=== PATIENT | female | born 1935 | race African-American/Black ===

== ENCOUNTER 2017-12-29 08:48 | Emergency (ER) | payer OTHER ==
[2017-12-29 09:02] VITALS: BMI 35.6
--- NOTE | 2017-12-29 09:27 | PDOC ---
History of Present Illness - General Chief Complaint: Back Pain Stated Complaint: BACK PAIN Time Seen by Provider: 12/29/17 09:26 - History of Present Illness Initial Comments: 12/29/17 09:27 Ms. Anderson is an 82 yo female w/ pmh of HTN, HLD, DM, gout Asthma, Breast CA who presents for evaluation of 1 day history of right gluteal pain. She reports it started yesterday when she was getting up from watching tv. She experienced sudden pain and a "pop" and had difficulty sleeping due to pain after this. The patient denies chest pain, shortness of breath, headache and dizziness. Denies fever, chills, nausea, vomit, diarrhea and constipation. Denies dysuria, frequency, urgency and hematuria. Allergies: NKDA Past History - Past Medical History Allergies/Adverse Reactions: Allergies Allergy/AdvReac Type Severity Reaction Status Date / Time No Known Drug Allergies Allergy Verified 01/26/16 08:18 Home Medications: Ambulatory Orders Acetaminophen 325 mg PO PRN PRN 12/29/17 Albuterol 2.5/Ipratropium 0.5 [Duoneb -] 1 amp NEB DAILY PRN 12/29/17 Allopurinol [Zyloprim -] 100 mg PO DAILY 12/29/17 Amlodipine Besylate 10 mg PO DAILY 12/29/17 Anastrozole [Arimidex -] 1 mg PO DAILY 12/29/17 Atorvastatin Calcium 20 mg PO DAILY 12/29/17 Cholecalciferol (Vitamin D3) [Vitamin D3] 5,000 unit PO DAILY 12/29/17 Cyclobenzaprine HCl [Flexeril 10 mg] 10 mg PO TID PRN #21 tablet 12/29/17 Insulin Detemir [Levemir Flextouch] 15 unit SQ HS 12/29/17 Insulin Detemir [Levemir Flextouch] 40 unit SQ AM 12/29/17 Levothyroxine Sodium [Levo-T] 100 mcg PO DAILY 12/29/17 Lidocaine [Lidocaine Pain Relief] 1 each TP DAILY #7 adh..patch 12/29/17 Losartan 50Mg/Hctz 12.5MG [Hyzaar -] 1 tab PO DAILY 12/29/17 Anemia: No Asthma: No Cancer: Yes (RIGHT BREAST) Cardiac Disorders: No CVA: No COPD: Yes CHF: No Dementia: No Diabetes: Yes GI Disorders: No Disorders: No HTN: Yes Hypercholesterolemia: Yes Kidney Stones: Yes Liver Disease: No Seizures: No Thyroid Disease: Yes Other medical history: Gout, arthritis - Surgical History Abdominal Surgery: Yes (S/P ABDOMINAL PERITONITIS) Appendectomy: No Cardiac Surgery: No Cholecystectomy: Yes Lung Surgery: No Neurologic Surgery: No Orthopedic Surgery: No - Suicide/Smoking/Psychosocial Hx Smoking Status: No Smoking History: Never smoked Have you smoked in the past 12 months: No Number of Cigarettes Smoked Daily: 0 If you are a former smoker, when did you quit?: 2009 Information on smoking cessation initiated: No Hx Alcohol Use: No Drug/Substance Use Hx: No Substance Use Type: None Hx Substance Use Treatment: No Review of Systems - Review of Systems Comments:: 12/29/17 09:28 GENERAL/CONSTITUTIONAL: No fever or chills. No weakness. HEAD, EYES, EARS, NOSE AND THROAT: No change in vision. No ear pain or discharge. No sore throat. CARDIOVASCULAR: No chest pain or shortness of breath RESPIRATORY: No cough, wheezing, or hemoptysis. GASTROINTESTINAL: No nausea, vomiting, diarrhea or constipation. GENITOURINARY: No dysuria, frequency, or change in urination. MUSCULOSKELETAL: +Right leg pain as described. SKIN: No rash NEUROLOGIC: No headache, vertigo, loss of consciousness, or change in strength/ sensation. ENDOCRINE: No increased thirst. No abnormal weight change HEMATOLOGIC/LYMPHATIC: No anemia, easy bleeding, or history of blood clots. ALLERGIC/IMMUNOLOGIC: No hives or skin allergy. *Physical Exam - Vital Signs Last Vital Signs Temp Pulse Resp BP Pulse Ox 98.6 F 83 16 115/52 99 12/29/17 08:58 12/29/17 08:58 12/29/17 08:58 12/29/17 08:58 12/29/17 08:58 - Physical Exam Comments: 12/29/17 09:28 GENERAL: +Patient morbidly obese, otherwise Awake, alert, and fully oriented, in no acute distress HEAD: No signs of trauma, normocephalic, atraumatic EYES: PERRLA, EOMI, sclera anicteric, conjunctiva clear ENT: Auricles normal inspection, hearing grossly normal, nares patent, oropharynx clear without exudates. Moist mucosa NECK: Normal ROM, supple, no lymphadenopathy, JVD, or masses LUNGS: No distress, speaks full sentences, clear to auscultation bilaterally HEART: Regular rate and rhythm, normal S1 and S2, no murmurs, rubs or gallops, peripheral pulses normal and equal bilaterally. ABDOMEN: Soft, nontender, normoactive bowel sounds. No guarding, no rebound. No masses EXTREMITIES: +[place] TTP to right lateral gluteus. No change in strength or sensation. Normal inspection, Normal range of motion, no edema. No clubbing or cyanosis. NEUROLOGICAL: Cranial nerves II through XII grossly intact. Normal speech, normal gait, no focal sensorimotor deficits SKIN: Warm, Dry, normal turgor, no rashes or lesions noted. Medical Decision Making - Medical Decision Making 12/29/17 10:48 Ms. Anderson is an 82 yo female w/ pmh as described who presents for evaluation of sudden onset right leg pain last night. Patient describes pain as radiating up from right outside gluteal region. Patient not complaining of pain over any bony area and no midline TTP. No decrease in strength or sensation; suspect muscular etiology of pain. Patient given lidocaine patch, acetaminophen, and flexeril for symptomatic relief and reportedly feeling "much better" after. Patient able to ambulate at baseline in ER and wants to go home. Discharging w/ instructions to f/u w/ pcp for further relief. *DC/Admit/Observation/Transfer Diagnosis at time of Disposition: Leg pain, right - Discharge Dispostion Disposition: HOME - Referrals - Patient Instructions Printed Discharge Instructions: How to Prevent Falls Additional Instructions: Please follow-up with primary care provider for further evaluation. Return to ER if any increase in pain, fever, chills, or other concerning symptoms. - Post Discharge Activity
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
[2017-12-29] MEDS ORDERED: LIDOCAINE 5% TOPICAL PATCH TP ONE (09:45)
[2017-12-29] MEDS ORDERED: ACETAMINOPHEN 325 MG TABLET (FP) PO ONE (09:46)
[2017-12-29] MEDS ORDERED: CYCLOBENZAPRINE HCL 5 MG TABLET PO ONE (09:48)
[2017-12-29] MEDS ORDERED: CYCLOBENZAPRINE HCL 10 MG TABLET (FP) ONE (09:55)
[2017-12-29] MEDS ORDERED: ACETAMINOPHEN 325 MG TABLET (FP) ONE (09:55)
[2017-12-29] MEDS ORDERED: LIDOCAINE 5% TOPICAL PATCH ONE (09:55)
[2017-12-29 11:17] VITALS: BP 120/64; PULSE 86; TEMP 97.9
== END 2017-12-29 11:16 | disposition home or self-care (01) ==
LOC: JER 08:48
DX: M79.604 Pain in right leg (principal); I10 Essential (primary) hypertension; E78.5 Hyperlipidemia, unspecified; E11.9 Type 2 diabetes mellitus without complications; J45.909 Unspecified asthma, uncomplicated; Z85.3 Personal history of malignant neoplasm of breast
CPT/HCPCS: 82962; 99282-25

== ENCOUNTER 2017-12-29 19:13 | Observation (INO) | payer OTHER ==
--- NOTE | 2017-12-29 20:14 | PDOC ---
History of Present Illness - General History Source: Patient Exam Limitations: No Limitations - History of Present Illness Initial Comments: 12/29/17 20:29 The patient is a 82 year old female brought via EMS and presenting with her family, with a significant past medical history of HTN, HLD, DM, gout Asthma, Breast CA (no chemo), who presents to the ED complaining of back pain since yesterday. She reports that the pain ranges from mild to moderate, without radiation. She notes that certain movements exacerbates her pain. She notes that she usually ambulates normally but hasnt due to the pain. The patient was in the ED earlier today with the same complaint and was discharged after improvements of symptoms. The patient denies chest pain, shortness of breath, headache and dizziness. Denies fever, chills, nausea, vomiting, diarrhea or constipation. Denies dysuria , frequency, urgency and hematuria. Allergies: None Past surgical history: ABDOMINAL PERITONITIS, cholcystectomy Social History: No alcohol, tobacco or drug use reported <Dariel Zhao - Last Filed: 12/29/17 20:29> <Amber Kerr - Last Filed: 12/30/17 01:15> - General Chief Complaint: Back Pain Stated Complaint: PAIN Time Seen by Provider: 12/29/17 20:03 Past History <Dariel Zhao - Last Filed: 12/29/17 20:29> - Past Medical History Anemia: No Asthma: No Cancer: Yes (RIGHT BREAST) Cardiac Disorders: No CVA: No COPD: Yes CHF: No Dementia: No Diabetes: Yes GI Disorders: No Disorders: No HTN: Yes Hypercholesterolemia: Yes Kidney Stones: Yes Liver Disease: No Seizures: No Thyroid Disease: Yes - Surgical History Abdominal Surgery: Yes (S/P ABDOMINAL PERITONITIS) Appendectomy: No Cardiac Surgery: No Cholecystectomy: Yes Lung Surgery: No Neurologic Surgery: No Orthopedic Surgery: No - Suicide/Smoking/Psychosocial Hx Smoking Status: No Smoking History: Never smoked Have you smoked in the past 12 months: No Number of Cigarettes Smoked Daily: 0 If you are a former smoker, when did you quit?: 2009 Information on smoking cessation initiated: No Hx Alcohol Use: No Drug/Substance Use Hx: No Substance Use Type: None Hx Substance Use Treatment: No <Amber Kerr - Last Filed: 12/30/17 01:15> - Past Medical History Allergies/Adverse Reactions: Allergies Allergy/AdvReac Type Severity Reaction Status Date / Time No Known Drug Allergies Allergy Verified 12/29/17 19:42 Home Medications: Ambulatory Orders Albuterol 2.5/Ipratropium 0.5 [Duoneb -] 1 amp NEB DAILY PRN 12/29/17 Allopurinol [Zyloprim -] 100 mg PO DAILY 12/29/17 Amlodipine Besylate 10 mg PO DAILY 12/29/17 Anastrozole [Arimidex -] 1 mg PO DAILY 12/29/17 Atorvastatin Calcium 20 mg PO DAILY 12/29/17 B12/Levomefolate Calcium/B-6 [Foltx Tablet] 1 each PO DAILY 12/29/17 Cyclobenzaprine HCl [Flexeril 10 mg] 10 mg PO TID PRN #21 tablet 12/29/17 Levothyroxine Sodium [Levo-T] 100 mcg PO DAILY 12/29/17 Losartan 50Mg/Hctz 12.5MG [Hyzaar -] 1 tab PO DAILY 12/29/17 Review of Systems - Review of Systems Able to Perform ROS?: Yes Comments:: 12/29/17 20:29 GENERAL/CONSTITUTIONAL: No fever or chills. No weakness. HEAD, EYES, EARS, NOSE AND THROAT: No change in vision. No ear pain or discharge. No sore throat. GASTROINTESTINAL: No nausea, vomiting, diarrhea or constipation. GENITOURINARY: No dysuria, frequency, or change in urination. CARDIOVASCULAR: No chest pain or shortness of breath. RESPIRATORY: No cough, wheezing, or hemoptysis. MUSCULOSKELETAL: (+) Back pain. No joint or muscle swelling or pain. No neck pain. SKIN: No rash NEUROLOGIC: No headache, vertigo, loss of consciousness, or change in strength/ sensation. ENDOCRINE: No increased thirst. No abnormal weight change. HEMATOLOGIC/LYMPHATIC: No anemia, easy bleeding, or history of blood clots. ALLERGIC/IMMUNOLOGIC: No hives or skin allergy. <Dariel Zhao - Last Filed: 12/29/17 20:29> *Physical Exam - Vital Signs Last Vital Signs Temp Pulse Resp BP Pulse Ox 97.6 F 90 18 132/76 88 L 12/29/17 19:42 12/29/17 19:42 12/29/17 19:42 12/29/17 19:42 12/29/17 19:42 - Physical Exam Comments: 12/29/17 20:29 Constitutional: Awake, alert, oriented. No acute distress. Head: Normocephalic. Atraumatic Eyes: PERRL. EOMI. Conjunctivae are not pale. ENT: Mucous membranes are moist and intact. Posterior pharynx without exudates or erythema. Uvula midline. Neck: Supple. Full ROM. No lymphadenopathy. Cardiovascular: Regular rate. Regular rhythm. S1, S2 regular. Distal pulses are 2+ and symmetric. Pulmonary/Chest: No evidence of respiratory distress. Clear to auscultation bilaterally No wheezing, rales or rhonchi. Abdominal: Soft and non-distended. There is no tenderness. No rebound, guarding or rigidity. No organomegaly. No palpable masses. Good bowel sounds. Back: No CVA tenderness. Musculoskeletal: No edema. No cyanosis. No clubbing. Full range of motion in all extremities. Nocalf tenderness. Radial/pedal pulses are intact and 2+ bilaterally Skin: Skin is warm and dry. No petechiae. No purpura. Neurological: Alert and oriented to person, place, and time. Cranial nerves II -XII are grossly intact. Normal speech. Strength is grossly symmetric. No sensory deficits. Psychiatric: Good eye contact. Normal interaction, affect and behavior. <Dariel Zhao - Last Filed: 12/29/17 20:29> - Vital Signs Last Vital Signs Temp Pulse Resp BP Pulse Ox 97.6 F 90 18 132/76 88 L 12/29/17 19:42 12/29/17 19:42 12/29/17 19:42 12/29/17 19:42 12/29/17 19:42 <Amber Kerr - Last Filed: 12/30/17 01:15> Heart Score/ECG Review - ECG Intrepretation Comment:: 12/29/17 22:22 sinus at 96, nl axis, nl interval, no acute st/t wave findings <Amber Kerr - Last Filed: 12/30/17 01:15> ED Treatment Course - LABORATORY CBC & Chemistry Diagram: 12/29/17 21:00 12/29/17 21:00 <Amber Kerr - Last Filed: 12/30/17 01:15> Medical Decision Making - Medical Decision Making 12/29/17 20:49 a/p: 82yo female with hx of breast ca and RA with R low back and flank pain -seen in the ED ealier today and given flexeril - felt better went home -pain now radiating down R leg - no paresthesias -no signs/symptoms of caude equina -midline ttp lower thoracic and upper lumbar -no rashes -also with R cva ttp - suprapubic ttp, will send ua/ucx will medicate and reassess -labs 12/29/17 22:22 labs reviewed cxr clear pending ua and ct 12/30/17 00:05 pt still with back pain that radiates down R leg - no paresthesias pt states pain improved but pain with movement of R leg case discussed with Dr. Shannon - pt willing to stay for obs and pt eval Dr. Shannon requests call to [facility] for obs overnight, will take over in AM. states patient may need rehab 12/30/17 01:[address] Cohn - who accepts pt to service tonight <Amber Kerr - Last Filed: 12/30/17 01:15> *DC/Admit/Observation/Transfer - Attestations Scribe Attestion: 12/29/17 20:30 Documentation prepared by Dariel Zhao, acting as medical transcription supervisor for Amber Kerr DO <Dariel Zhao - Last Filed: 12/29/17 20:29> - Discharge Dispostion Decision to Admit order: Yes - Attestations Physician Attestion: 12/30/17 01:15 I, Dr. Amber Kerr, DO, attest that this document has been prepared under my direction and personally reviewed by me in its entirety. I further attest, that it accurately reflects all work, treatment, procedures and medical decision -making performed by me. <Amber Kerr - Last Filed: 12/30/17 01:15> Diagnosis at time of Disposition: Back pain, Leg pain, right - Discharge Dispostion Condition at time of disposition: Fair - Referrals Referrals: John Shannon MD [Primary Care Provider] - - Patient Instructions - Post Discharge Activity
[2017-12-29] MEDS ORDERED: ACETAMINOPHEN 1000 MG/100 ML VIAL (NON FORMULARY) IVPB ONE (20:17)
[2017-12-29] MEDS ORDERED: METHOCARBAMOL 500 MG TABLET PO ONE (20:17)
[2017-12-29] MEDS ORDERED: ACETAMINOPHEN INJECTION 100 ML IVPB ONE (20:29)
[2017-12-29] MEDS ORDERED: METHOCARBAMOL 500 MG TABLET ONE (20:29)
[2017-12-29 21:06] LABS: BASO % 0.5 % (0-2.0); EOS % 0.4 % (0-4.5); HEMATOCRIT 34.6 % (32.4-45.2); HEMOGLOBIN 11.5 GM/dL (10.7-15.3); LYMPH % 9.4 % (8-40); MCH 30.4 pg (25.7-33.7); MCHC 33.3 g/dl (32.0-36.0); MEAN CELL VOLUME 91.2 fl (80-96); MEAN PLT VOLUME 10.3 fl (7.5-11.1); MONO % 10.2 % (3.8-10.2); NEUT % 79.5 % (42.8-82.8); PLATELET COUNT 163 K/MM3 (134-434); RBC 3.79 M/mm3 (3.60-5.2); RDW 15.3 % (11.6-15.6); WHITE BLOOD COUNT 5.8 K/mm3 (4.0-10.0)
[2017-12-29 21:35] LABS: ALBUMIN 3.5 g/dl (3.4-5.0); ANION GAP 9 (8-16); BILIRUBIN,TOTAL 0.4 mg/dL (0.2-1.0); BLOOD UREA NITROGEN 22 mg/dL (7-18); CALCIUM 9.5 mg/dL (8.5-10.1); CHLORIDE 105 mmol/L (98-107); CO2 27 mmol/L (21-32); CREATININE 1.4 mg/dL (0.55-1.02); GLUCOSE,RANDOM 168 mg/dL (74-106); POTASSIUM 3.7 mmol/L (3.5-5.1); SGOT/AST 20 U/L (15-37); SGPT/ALT 15 U/L (12-78); SODIUM 141 mmol/L (136-145)
[2017-12-29 21:36] LABS: ALK PHOS 145 U/L (45-117)
[2017-12-29 22:27] LABS: URINE APPEARANCE CLOUDY; URINE BILIRUBIN NEGATIVE (<2.0 mg/dL); URINE COLOR YELLOW; URINE GLUCOSE (UA) 3+ (NEGATIVE); URINE KETONE NEGATIVE (NEGATIVE); URINE LEUK ESTERASE NEGATIVE (NEGATIVE); URINE NITRITE NEGATIVE (NEGATIVE); URINE UROBILINOGEN NEGATIVE mg/dL (0.2-1.0)
[2017-12-29 22:31] LABS: URINE PROTEIN 2+ (NEGATIVE)
[2017-12-29 22:32] LABS: EPI CELLS RARE /HPF (FEW); URINE BACTERIA FEW /hpf (NONE SEEN)
[2017-12-30] MEDS ORDERED: SODIUM CHLORIDE 0.9% 1000 ML INFUS.BAG IV ONE (00:06)
[2017-12-30] MEDS ORDERED: LIDOCAINE 5% TOPICAL PATCH TP ONE (00:07)
[2017-12-30] MEDS ORDERED: LIDOCAINE 5% TOPICAL PATCH ONE (01:45)
[2017-12-30 04:25] VITALS: BMI 28.4
--- NOTE | 2017-12-30 05:02 | PN ---
Teaching Attending Note Name of Resident: John Cohn ATTENDING PHYSICIAN STATEMENT I saw and evaluated the patient. I reviewed the resident's note and discussed the case with the resident. I agree with the resident's findings and plan as documented. SUBJECTIVE: Patient is a 82 year old female brought via EMS and presenting with her family, with a significant past medical history of HTN, HLD, DM, gout Asthma, Breast CA (no chemo), who presents to the ED complaining of back pain since yesterday. She reports that the pain ranges from mild to moderate, without radiation. She notes that certain movements exacerbates her pain. She thinks she moved the wrong way and something "popped". The patient was in the ED earlier today and ambulated before discharge but upon getting home by EMS, she could not walk. OBJECTIVE: Alert and in pain. Vital Signs Period Temp Pulse Resp BP Sys/[place] Pulse Ox Last 24 Hr 97.6 F-99.6 F 89-90 18-20 126-134/76-88 88-95 HEENT: No Jaundice, eye redness or discharge, PERRLA, EOMI. Normocephalic, atraumatic. External ears are normal and hearing is grossly intact. No nasal discharge. Neck: Supple, nontender. No palpable adenopathy or thyromegaly. No JVD Chest: Good effort. Clear to auscultation and percussion. Heart: Regular. No S3, rub or murmur Abdomen: Not distended, soft, nontender and no HSM. No rebound or guarding. Normoactive bowel sounds. Ext: Peripheral pulses intact. No leg edema. Mild lumbar spine tenderness. Skin: Warm and dry. No petechiae, rash or ecchymosis. Neuro: Alert. Oriented x3. CN 2-12 grossly intact. Sensation grossly intact in all four extremities; painful straight leg raising; DTR are symmetric. Current Medications Generic Name Dose Route Start Last Admin Trade Name Freq PRN Reason Stop Dose Admin Miscellaneous 1 each 12/30/17 22:00 Lidoderm Patch Removal MC [id number] [facility] Home Medications Medication Instructions Recorded Albuterol 2.5/Ipratropium 0.5 1 amp NEB DAILY PRN 12/29/17 [Duoneb -] Allopurinol [Zyloprim -] 100 mg PO DAILY 12/29/17 Amlodipine Besylate 10 mg PO DAILY 12/29/17 Anastrozole [Arimidex -] 1 mg PO DAILY 12/29/17 Atorvastatin Calcium 20 mg PO DAILY 12/29/17 B12/Levomefolate Calcium/B-6 1 each PO DAILY 12/29/17 [Foltx Tablet] Cyclobenzaprine HCl [Flexeril 10 10 mg PO TID PRN #21 tablet 12/29/17 mg] Levothyroxine Sodium [Levo-T] 100 mcg PO DAILY 12/29/17 Losartan 50Mg/Hctz 12.5MG [Hyzaar 1 tab PO DAILY 12/29/17 -] Abnormal Lab Results 12/29/17 12/29/17 21:00 22:00 BUN 22 H Creatinine 1.4 H Random Glucose 168 H Alkaline Phosphatase 145 H Urine Protein 2+ H Urine Glucose (UA) 3+ H Urine Blood 1+ H ASSESSMENT AND PLAN: 1. Back pain - Etiology unclear. Had a CT scan of "Abdomen and Pelvis" which did not show any gross abnormality. Will continue lidoderm patch, warm compress , get PT consult and lumbosacral MRI. Of concern, is her history of breast cancer with elevated Alkaline phosphatase. 2. Pyuria - Asymptomatic and also has proteinuria and hematuria. Repeat clean catch urinalysis. No need for antibiotics at this time 3. CHRIS - May signal dehydration from osmotic diuresis. Rehydrate orally, strive for euglycemia and avoid nephrotoxic agents such as NSAIDS, aminoglycosides, contrast dyes and certain Alternative medicine products. Check uric acid level and HbA1c 4. DVT prophylaxis - Heparin 5000u sq tid. 5. Advance directives - Full code
--- NOTE | 2017-12-30 06:29 | HP ---
CHIEF COMPLAINT: leg pain PCP: Mirtha HISTORY OF PRESENT ILLNESS: Pt is an 82 y/o F with PMH HTN, HLD, DM, gout, asthma, breast CA (no chemo) who presented to ED with leg pain after back pain. Pain did not shoot down the leg. Pt was evaluated in ED and was able to walk. She was discharged home, but on arriving in the ambulance, pt was unable to ambulate due to pain and so she was brought back to ED. On my interview, pt does still have leg pain. No other complaints. 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 (2)UA with 3+ glc, 21 WBC, CXR neg, CTAP pos with chronic findings (3) Recent Travel: PAST MEDICAL HISTORY: as above PAST SURGICAL HISTORY: Social History: Smoking : denies Alcohol: denies Drugs: denies Family History: Allergies No Known Drug Allergies Allergy (Verified 12/29/17 19:42) HOME MEDICATIONS: Home Medications Medication Instructions Recorded Albuterol 2.5/Ipratropium 0.5 1 amp NEB DAILY PRN 12/29/17 [Duoneb -] Allopurinol [Zyloprim -] 100 mg PO DAILY 12/29/17 Amlodipine Besylate 10 mg PO DAILY 12/29/17 Anastrozole [Arimidex -] 1 mg PO DAILY 12/29/17 Atorvastatin Calcium 20 mg PO DAILY 12/29/17 B12/Levomefolate Calcium/B-6 1 each PO DAILY 12/29/17 [Foltx Tablet] Cyclobenzaprine HCl [Flexeril 10 10 mg PO TID PRN #21 tablet 12/29/17 mg] Levothyroxine Sodium [Levo-T] 100 mcg PO DAILY 12/29/17 Losartan 50Mg/Hctz 12.5MG [Hyzaar 1 tab PO DAILY 12/29/17 -] REVIEW OF SYSTEMS CONSTITUTIONAL: Absent: fever, chills, diaphoresis, generalized weakness, malaise, loss of appetite, weight change HEENT: Absent: rhinorrhea, nasal congestion, throat pain, throat swelling, difficulty swallowing, mouth swelling, ear pain, eye pain, visual changes CARDIOVASCULAR: Absent: chest pain, syncope, palpitations, irregular heart rate, lightheadedness , peripheral edema RESPIRATORY: Absent: cough, shortness of breath, dyspnea with exertion, orthopnea, wheezing, stridor, hemoptysis GASTROINTESTINAL: Absent: abdominal pain, abdominal distension, nausea, vomiting, diarrhea, constipation, melena, hematochezia GENITOURINARY: Absent: dysuria, frequency, urgency, hesitancy, hematuria, flank pain, genital pain MUSCULOSKELETAL: Absent: myalgia, arthralgia, joint swelling, back pain, neck pain SKIN: Absent: rash, itching, pallor HEMATOLOGIC/IMMUNOLOGIC: Absent: easy bleeding, easy bruising, lymphadenopathy, frequent infections ENDOCRINE: Absent: unexplained weight gain, unexplained weight loss, heat intolerance, cold intolerance NEUROLOGIC: Absent: headache, focal weakness or paresthesias, dizziness, unsteady gait, seizure, mental status changes, bladder or bowel incontinence PSYCHIATRIC: Absent: anxiety, depression, suicidal or homicidal ideation, hallucinations. PHYSICAL EXAMINATION Vital Signs - 24 hr 12/29/17 12/30/17 12/30/17 19:42 00:53 04:01 Temperature 97.6 F 98.2 F 99.6 F Pulse Rate 90 90 Pulse Rate [ 89 Left Radial] Respiratory 18 18 20 Rate Blood Pressure 132/76 134/88 Blood Pressure 126/78 [Left Arm] O2 Sat by Pulse 88 L 95 Oximetry (%) Gen: sleeping, nad HEENT: NCAT neck: supple, no thyromegally, no jvd Cardio: rrr, normal s1s2, no mrg Pulm: expiratory wheezing abd: soft nontender ext: neg straight leg raise. no radiculopathy. Laboratory Results - last 24 hr 12/29/17 12/29/17 12/29/17 21:00 21:00 21:00 WBC 5.8 RBC 3.79 Hgb 11.5 Hct 34.6 MCV 91.2 MCH 30.4 MCHC 33.3 RDW 15.3 Plt Count 163 D MPV 10.3 Absolute Neuts (auto) 4.6 Neutrophils % 79.5 D Lymphocytes % 9.4 D Monocytes % 10.2 Eosinophils % 0.4 D Basophils % 0.5 Nucleated RBC % 0 Sodium 141 Potassium 3.7 Chloride 105 Carbon Dioxide 27 Anion Gap 9 BUN 22 H Creatinine 1.4 H Creat Clearance w eGFR 36.00 Random Glucose 168 H Calcium 9.5 Total Bilirubin 0.4 AST 20 ALT 15 Alkaline Phosphatase 145 H Creatine Kinase 131 Troponin I < 0.02 Total Protein 8.0 Albumin 3.5 Urine Color Urine Appearance Urine pH Ur Specific [place] Urine Protein Urine Glucose (UA) Urine Ketones Urine Blood Urine Nitrite Urine Bilirubin Urine Urobilinogen Ur Leukocyte Esterase Urine WBC (Auto) Urine RBC (Auto) Ur Epithelial Cells Urine Bacteria 12/29/17 22:00 WBC RBC Hgb Hct MCV MCH MCHC RDW Plt Count MPV Absolute Neuts (auto) Neutrophils % Lymphocytes % Monocytes % Eosinophils % Basophils % Nucleated RBC % Sodium Potassium Chloride Carbon Dioxide Anion Gap BUN Creatinine Creat Clearance w eGFR Random Glucose Calcium Total Bilirubin AST ALT Alkaline Phosphatase Creatine Kinase Troponin I Total Protein Albumin Urine Color Yellow Urine Appearance Cloudy Urine pH 5.0 Ur Specific [place] 1.017 Urine Protein 2+ H Urine Glucose (UA) 3+ H Urine Ketones Negative Urine Blood 1+ H Urine Nitrite Negative Urine Bilirubin Negative Urine Urobilinogen Negative Ur Leukocyte Esterase Negative Urine WBC (Auto) 21 Urine RBC (Auto) 1 Ur Epithelial Cells Rare Urine Bacteria Few ASSESSMENT/PLAN: Pt is an 82 y/o F with PMH HTN, HLD, DM, gout, asthma, breast CA (no chemo) who presented to ED with leg pain after back pain. Pt on medsurg with inability to ambulate. #Leg pain -unable to ambulate -pain control -PT -fall precautions #DM -BGM -ISS #Asthma -ventolin PRN #HTN -controlled #HLD -stable John Cohn MD PGY-2 IM Visit type - Emergency Visit Emergency Visit: Yes ED Registration Date: 12/30/17 Care time: The patient presented to the Emergency Department on the above date and was hospitalized for further evaluation of their emergent condition. - New Patient This patient is new to me today: Yes Date on this admission: 12/30/17 - Critical Care Critical Care patient: No Hospitalist Screening - Colonoscopy Questionnaire Colonoscopy Questionnaire: Colonoscopy Questionnaire - Patient: 50 - 75 years old and never had a screening colonoscopy: Unknown History of colon or rectal polyps, or CA: Unknown History of IBD, Crohn's disease or UC: Unknown History of abdominal radiation therapy as a child: Unknown - Relative: 1 with colon or rectal CA, or polyps at age 60 or younger: Unknown Colon or rectal CA diagnosed at age 45 or younger: Unknown Multiple relatives with colon or rectal CA: Unknown - Outcome: Screening Result: Negative Screen
[2017-12-30] MEDS: HEPARIN NA (PORCINE) 5,000 UNITS/ML 1ML VIAL SQ SCH ×3 (08:49→21:23)
--- NOTE | 2017-12-30 09:24 | EKG ---
Test Reason : Blood Pressure : / mmHG Vent. Rate : 096 BPM Atrial Rate : 096 BPM P-R Int : 152 ms QRS Dur : 088 ms QT Int : 364 ms P-R-T Axes : 055 025 040 degrees QTc Int : 459 ms NORMAL SINUS RHYTHM NORMAL ECG WHEN COMPARED WITH ECG OF 26-JAN-2016 08:19, VENT. RATE HAS INCREASED BY 41 BPM Confirmed by FADY FREED MD ([id number]) on 12/30/2017 9:24:03 AM Referred By: Confirmed By:FADY FREED MD
[2017-12-30] MEDS ORDERED: INSULIN (NOVOLOG) ASPART 100 UNITS/ML 10ML VIAL ONE (11:34)
[2017-12-30] MEDS: INSULIN SLIDING SCALE (NOVOLOG) 1 VIAL SQ SCH ×3 (11:37→21:26)
[2017-12-30 12:36] LABS: URINE APPEARANCE SLCLOUDY; URINE BILIRUBIN NEGATIVE (<2.0 mg/dL); URINE COLOR YELLOW; URINE GLUCOSE (UA) 3+ (NEGATIVE); URINE KETONE NEGATIVE (NEGATIVE); URINE LEUK ESTERASE TRACE (NEGATIVE); URINE NITRITE NEGATIVE (NEGATIVE); URINE UROBILINOGEN NEGATIVE mg/dL (0.2-1.0)
[2017-12-30 12:38] LABS: URINE PROTEIN 2+ (NEGATIVE)
[2017-12-30 13:17] LABS: URINE BACTERIA MANY /hpf (NONE SEEN); URINE MUCUS RARE; YEAST MANY
[2017-12-30] MEDS: IBUPROFEN 400 MG TABLET (FP) PO PRN ×2 (14:50→21:25)
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
[2017-12-30] MEDS ORDERED: cefTRIAXone SODIUM 1 GM VIAL ONE (17:59)
[2017-12-30] MEDS ORDERED: DEXTROSE 5%-WATER - 50 ML IVPB ONE (18:00)
[2017-12-30] MEDS: CEFTRIAXONE 1 GM in DEXTROSE 5%-WATER - 50 ML IVPB SCH (18:02)
[2017-12-30] MEDS ORDERED: LIDOCAINE PATCH REMOVAL MC SCH (22:00)
[2017-12-31] MEDS: IBUPROFEN 400 MG TABLET (FP) PO PRN ×2 (03:57→14:47)
[2017-12-31] MEDS: HEPARIN NA (PORCINE) 5,000 UNITS/ML 1ML VIAL SQ SCH ×2 (05:47→14:36)
[2017-12-31] MEDS: INSULIN SLIDING SCALE (NOVOLOG) 1 VIAL SQ SCH ×3 (06:15→17:10)
[2017-12-31 07:50] LABS: BASO % 0.5 % (0-2.0); EOS % 2.9 % (0-4.5); HEMATOCRIT 29.9 % (32.4-45.2); HEMOGLOBIN 9.9 GM/dL (10.7-15.3); LYMPH % 19.4 % (8-40); MCH 30.8 pg (25.7-33.7); MCHC 33.3 g/dl (32.0-36.0); MEAN CELL VOLUME 92.4 fl (80-96); MEAN PLT VOLUME 10.1 fl (7.5-11.1); MONO % 12.9 % (3.8-10.2); NEUT % 64.3 % (42.8-82.8); PLATELET COUNT 126 K/MM3 (134-434); RBC 3.23 M/mm3 (3.60-5.2); RDW 14.9 % (11.6-15.6); WHITE BLOOD COUNT 4.3 K/mm3 (4.0-10.0)
[2017-12-31 08:39] LABS: ALBUMIN 2.7 g/dl (3.4-5.0); ANION GAP 10 (8-16); BLOOD UREA NITROGEN 22 mg/dL (7-18); CALCIUM 8.8 mg/dL (8.5-10.1); CHLORIDE 104 mmol/L (98-107); CO2 27 mmol/L (21-32); GLUCOSE,RANDOM 167 mg/dL (74-106); MAGNESIUM 2.1 mg/dL (1.8-2.4); POTASSIUM 3.6 mmol/L (3.5-5.1); SGOT/AST 16 U/L (15-37); SGPT/ALT 13 U/L (12-78); SODIUM 141 mmol/L (136-145)
[2017-12-31 08:42] LABS: ALK PHOS 87 U/L (45-117); BILIRUBIN,TOTAL 0.4 mg/dL (0.2-1.0); CREATININE 1.2 mg/dL (0.55-1.02); TOT PROT 6.7 g/dl (6.4-8.2)
[2017-12-31] MEDS ORDERED: DEXTROSE 5%-WATER - 50 ML IVPB ONE (10:23)
[2017-12-31] MEDS ORDERED: cefTRIAXone SODIUM 1 GM VIAL ONE (10:23)
[2017-12-31] MEDS: CEFTRIAXONE 1 GM in DEXTROSE 5%-WATER - 50 ML IVPB SCH (10:30)
[2017-12-31] MEDS ORDERED: LIDOCAINE 5% TOPICAL PATCH TP SCH (11:15)
[2017-12-31] MEDS ORDERED: INSULIN (NOVOLOG) ASPART 100 UNITS/ML 10ML VIAL ONE ×2 (11:52→17:07)
--- NOTE | 2017-12-31 12:21 | PN ---
Physical Exam: SUBJECTIVE: Patient seen and examined OBJECTIVE: Vital Signs Period Temp Pulse Resp BP Sys/Rivera Pulse Ox Last 24 Hr 98.1 F-99.8 F 77-91 18-20 112-120/56-71 100 GENERAL: The patient is awake, alert, and fully oriented, in no acute distress. HEAD: Normal with no signs of trauma. EYES: PERRL, extraocular movements intact, sclera anicteric, conjunctiva clear. No ptosis. ENT: Ears normal, nares patent, oropharynx clear without exudates, moist mucous membranes. NECK: Trachea midline, full range of motion, supple. LUNGS: Breath sounds equal, clear to auscultation bilaterally, no wheezes, no crackles, no accessory muscle use. HEART: Regular rate and rhythm, S1, S2 without murmur, rub or gallop. ABDOMEN: Soft, nontender, nondistended, normoactive bowel sounds, no guarding, no rebound, no hepatosplenomegaly, no masses. EXTREMITIES: 2+ pulses, warm, well-perfused, no edema. NEUROLOGICAL: Cranial nerves II through XII grossly intact. Normal speech, gait not observed. PSYCH: Normal mood, normal affect. SKIN: Warm, dry, normal turgor, no rashes or lesions noted Laboratory Results - last 24 hr 12/30/17 12/30/17 12/31/17 10:45 16:48 05:43 WBC RBC Hgb Hct MCV MCH MCHC RDW Plt Count MPV Absolute Neuts (auto) Neutrophils % Lymphocytes % Monocytes % Eosinophils % Basophils % Nucleated RBC % Sodium Potassium Chloride Carbon Dioxide Anion Gap BUN Creatinine Creat Clearance w eGFR POC Glucometer 141 169 Random Glucose Calcium Magnesium Total Bilirubin AST ALT Alkaline Phosphatase Total Protein Albumin Urine Color Yellow Urine Appearance Slcloudy Urine pH 5.0 Ur Specific [place] 1.018 Urine Protein 2+ H Urine Glucose (UA) 3+ H Urine Ketones Negative Urine Blood 1+ H Urine Nitrite Negative Urine Bilirubin Negative Urine Urobilinogen Negative Ur Leukocyte Esterase Trace Urine WBC (Auto) 20 Urine RBC (Auto) <1 Urine Bacteria Many Urine Mucus Rare Urine Yeast Many 12/31/17 12/31/17 06:40 06:40 WBC 4.3 RBC 3.23 L Hgb 9.9 L Hct 29.9 L MCV 92.4 MCH 30.8 MCHC 33.3 RDW 14.9 Plt Count 126 L D MPV 10.1 Absolute Neuts (auto) 2.8 Neutrophils % 64.3 Lymphocytes % 19.4 D Monocytes % 12.9 H Eosinophils % 2.9 D Basophils % 0.5 Nucleated RBC % 0 Sodium 141 Potassium 3.6 Chloride 104 Carbon Dioxide 27 Anion Gap 10 BUN 22 H Creatinine 1.2 H Creat Clearance w eGFR 43.01 POC Glucometer Random Glucose 167 H Calcium 8.8 Magnesium 2.1 Total Bilirubin 0.4 AST 16 ALT 13 Alkaline Phosphatase 87 D Total Protein 6.7 Albumin 2.7 L Urine Color Urine Appearance Urine pH Ur Specific [place] Urine Protein Urine Glucose (UA) Urine Ketones Urine Blood Urine Nitrite Urine Bilirubin Urine Urobilinogen Ur Leukocyte Esterase Urine WBC (Auto) Urine RBC (Auto) Urine Bacteria Urine Mucus Urine Yeast Active Medications Generic Name Dose Route Start Last Admin Trade Name Freq PRN Reason Stop Dose Admin Heparin Sodium (Porcine) 5,000 unit 12/30/17 08:00 12/31/17 05:47 Heparin - SQ 5,000 unit TID KAREN Administration Ceftriaxone Sodium 1 gm/ 50 mls @ 200 mls/hr 12/30/17 17:45 12/31/17 10:30 Dextrose IVPB 200 mls/hr DAILY KAREN Administration Protocol Ibuprofen 400 mg 12/30/17 07:54 12/31/17 03:57 Motrin - PO 400 mg Q6H PRN Administration PAIN LEVEL 1-5 Insulin Aspart 1 vial 12/30/17 11:00 12/31/17 11:53 Novolog Vial Sliding Scale - SQ 4 units ACHS [facility] Administration Protocol Lidocaine 1 patch 12/31/17 11:15 12/31/17 11:42 Lidoderm Patch - TP 1 patch DAILY KAREN Administration Miscellaneous 1 each 12/30/17 22:00 12/30/17 21:24 Lidoderm Patch Removal MC Not Given DAILY@2200 [facility] Miscellaneous 1 each 12/31/17 22:00 Lidoderm Patch Removal MC DAILY@2200 [facility] ASSESSMENT/PLAN:
--- NOTE | 2017-12-31 16:29 | DS ---
Physical Exam: SUBJECTIVE: Patient seen and examined OBJECTIVE: Vital Signs Period Temp Pulse Resp BP Sys/Rivera Pulse Ox Last 24 Hr 98.1 F-99.8 F 77-91 18-20 115-128/56-72 100 PHYSICAL EXAM GENERAL: The patient is awake, alert, and fully oriented, in no acute distress. HEAD: Normal with no signs of trauma. EYES: PERRL, extraocular movements intact, sclera anicteric, conjunctiva clear. ENT: Ears normal, nares patent, oropharynx clear without exudates, moist mucous membranes. NECK: Trachea midline, full range of motion, supple. LUNGS: Breath sounds equal, clear to auscultation bilaterally, no wheezes, no crackles, no accessory muscle use. HEART: Regular rate and rhythm, S1, S2 without murmur, rub or gallop. ABDOMEN: Soft, nontender, nondistended, normoactive bowel sounds, no guarding, no rebound, no hepatosplenomegaly, no masses. EXTREMITIES: 2+ pulses, warm, well-perfused, no edema. NEUROLOGICAL: Cranial nerves II through XII grossly intact. Normal speech, gait not observed. PSYCH: Normal mood, normal affect. SKIN: Warm, dry, normal turgor, no rashes or lesions noted. LABS Laboratory Results - last 24 hr 12/30/17 12/31/17 12/31/17 16:48 05:43 06:40 WBC 4.3 RBC 3.23 L Hgb 9.9 L Hct 29.9 L MCV 92.4 MCH 30.8 MCHC 33.3 RDW 14.9 Plt Count 126 L D MPV 10.1 Absolute Neuts (auto) 2.8 Neutrophils % 64.3 Lymphocytes % 19.4 D Monocytes % 12.9 H Eosinophils % 2.9 D Basophils % 0.5 Nucleated RBC % 0 Sodium Potassium Chloride Carbon Dioxide Anion Gap BUN Creatinine Creat Clearance w eGFR POC Glucometer 141 169 Random Glucose Calcium Magnesium Total Bilirubin AST ALT Alkaline Phosphatase Total Protein Albumin 12/31/17 12/31/17 06:40 11:50 WBC RBC Hgb Hct MCV MCH MCHC RDW Plt Count MPV Absolute Neuts (auto) Neutrophils % Lymphocytes % Monocytes % Eosinophils % Basophils % Nucleated RBC % Sodium 141 Potassium 3.6 Chloride 104 Carbon Dioxide 27 Anion Gap 10 BUN 22 H Creatinine 1.2 H Creat Clearance w eGFR 43.01 POC Glucometer 209 Random Glucose 167 H Calcium 8.8 Magnesium 2.1 Total Bilirubin 0.4 AST 16 ALT 13 Alkaline Phosphatase 87 D Total Protein 6.7 Albumin 2.7 L HOSPITAL COURSE: Date of Admission:12/30/17 Date of Discharge: 12/31/17 MRI reassuring, no evidence of bony disease; no fractures cefuroxime for UTI lidoderm patch for topical analgesia f/u Dr. Dejesus Minutes to complete discharge: 35 Discharge Summary Reason For Visit: LOW BACK PAIN Current Active Problems Back pain (Acute) Leg pain, right (Acute) Condition: Improved - Instructions Diet, Activity, Other Instructions: Two prescriptions have been sent to your pharmacy. One is for cefuroxime which is an antibiotic for your urinary tract infection. The second is for lidoderm patches which you can put on your back for pain. Take these medications as directed. You should follow up with Dr. Shannon within one week of your discharge. Return to the emergency department for any new or worsening symptoms. Referrals: John Shannon MD [Primary Care Provider] - 1 Week Disposition: HOME - Home Medications Comprehensive Discharge Medication List: Ambulatory Orders Albuterol 2.5/Ipratropium 0.5 [Duoneb -] 1 amp NEB DAILY PRN 12/29/17 Allopurinol [Zyloprim -] 100 mg PO DAILY 12/29/17 Amlodipine Besylate 10 mg PO DAILY 12/29/17 Anastrozole [Arimidex -] 1 mg PO DAILY 12/29/17 Atorvastatin Calcium 20 mg PO DAILY 12/29/17 B12/Levomefolate Calcium/B-6 [Foltx Tablet] 1 each PO DAILY 12/29/17 Cyclobenzaprine HCl [Flexeril 10 mg] 10 mg PO TID PRN #21 tablet 12/29/17 Levothyroxine Sodium [Levo-T] 100 mcg PO DAILY 12/29/17 Losartan 50Mg/Hctz 12.5MG [Hyzaar -] 1 tab PO DAILY 12/29/17 Cefuroxime Axetil [Cefuroxime] 500 mg PO BID #10 tablet 12/31/17 Lidocaine 5% Patch [Lidoderm -] 1 patch TP DAILY #1 box 12/31/17
[2017-12-31 17:07] VITALS: BP 123/74; PULSE 83; TEMP 99.2
[2017-12-31] MEDS ORDERED: LIDOCAINE PATCH REMOVAL MC SCH (22:00)
== END 2017-12-31 17:50 | disposition home or self-care (01) ==
LOC: JER 19:13 → JERBED 12-30 00:20 → UNDOADMOB 12-30 01:33 → JERBED 12-30 01:33 → J8W 12-30 02:49
PROVIDERS: ADMIT Internal Medicine; ATTEND Nurse Practitioner Acute Care
PROC: 3E03329 Introduction of Other Anti-infective into Peripheral Vein, Percutaneous Approach (ICD-10-PCS; principal; 2017-12-30)
PROC: 3E033GC Introduction of Other Therapeutic Substance into Peripheral Vein, Percutaneous Approach (ICD-10-PCS; 2017-12-30)
PROC: 3E0337Z Introduction of Electrolytic and Water Balance Substance into Peripheral Vein, Percutaneous Approach (ICD-10-PCS; 2017-12-30)
PROC: 3E013VG Introduction of Insulin into Subcutaneous Tissue, Percutaneous Approach (ICD-10-PCS; 2017-12-30)
DX: M54.5 Low back pain (principal); M79.604 Pain in right leg; N39.0 Urinary tract infection, site not specified; R80.9 Proteinuria, unspecified; R31.9 Hematuria, unspecified; N17.9 Acute kidney failure, unspecified; I10 Essential (primary) hypertension; E78.5 Hyperlipidemia, unspecified; E11.9 Type 2 diabetes mellitus without complications; M10.9 Gout, unspecified; J45.909 Unspecified asthma, uncomplicated; Z85.3 Personal history of malignant neoplasm of breast
CPT/HCPCS: 36415; 71045-TC-FY; 72148-TC; 74176-TC; 80053; 81003; 81015; 82550; 82962; 83735; 84484; 85025; 87086; 93005; 93010; 96372; 96374; 96375; 97116-GP; 97162-GP; 99282-25; G0378; J0131; J1644; J7030

== ENCOUNTER 2020-01-20 19:45 | Inpatient (IN) | payer OTHER ==
[2020-01-20] MEDS ORDERED: ACETAMINOPHEN 325 MG TABLET (FP) PO ONE (20:34)
[2020-01-20] MEDS ORDERED: LIDOCAINE 5% TOPICAL PATCH TP ONE (20:34)
--- NOTE | 2020-01-20 20:50 | PDOC ---
History of Present Illness - General Chief Complaint: Injury Stated Complaint: FALL Time Seen by Provider: 01/20/20 19:57 - History of Present Illness Initial Comments: Pt is 84yo F with PMH IDDM, HTN, gout, who presents s/p fall. Pt states that she slipped on juice and fell at 7am today, and was laying on the floor until the am bulance arrived at 7pm, since she felt too weak to stand up. States the she has had L hip, knee and ankle pain x2 weeks, saw her PCP on Tuesday for this pain and was prescribed a higher dose of her gout medication, which she has not started taking yet. States that since the fall, her L hip and knee pain have been worse. Denies headache, loss of consciousness, chest pain, syncope, SOB, n/v, blurry v ision. PCP: Mirtha PMH: IDDM, HTN, gout, asthma All: NKDA Past History - Medical History Allergies/Adverse Reactions: Allergies Allergy/AdvReac Type Severity Reaction Status Date / Time egg Allergy Verified 01/20/20 20:13 No Known Drug Allergies Allergy Verified 01/20/20 20:13 Home Medications: Ambulatory Orders Albuterol 2.5/Ipratropium 0.5 [Duoneb -] 1 amp NEB DAILY PRN 12/29/17 Allopurinol [Zyloprim -] 100 mg PO DAILY 12/29/17 Amlodipine Besylate 10 mg PO DAILY 12/29/17 Levothyroxine Sodium [Levo-T] 100 mcg PO DAILY 12/29/17 Colchicine [Colcrys] 0 mg PO ASDIR 01/21/20 Telmisartan/Hydrochlorothiazid [Telmisartan-Hctz 40-12.5 mg Tb] 1 each PO ASDIR 01/21/20 Anemia: No Asthma: No Cancer: Yes (RIGHT BREAST) Cardiac Disorders: No CVA: No COPD: Yes CHF: No Dementia: No Diabetes: Yes GI Disorders: No Disorders: No HTN: Yes Hypercholesterolemia: Yes Kidney Stones: Yes Liver Disease: No Seizures: No Thyroid Disease: Yes - Surgical History Abdominal Surgery: Yes (S/P ABDOMINAL PERITONITIS) Appendectomy: No Cardiac Surgery: No Cholecystectomy: Yes Lung Surgery: No Neurologic Surgery: No Orthopedic Surgery: Yes - Psycho-Social/Smoking History Smoking Status: No Smoking History: Never smoked Have you smoked in the past 12 months: No Number of Cigarettes Smoked Daily: 0 If you are a former smoker, when did you quit?: 2009 Information on smoking cessation initiated: No - Substance Abuse Hx (Audit-C & DAST Scrn) How often the patient has a drink containing alcohol: Never Score: In Men: 4 or > Positive; In Women: 3 or > Positive: 0 Screen Result (Pos requires Nsg. Audit-10AR): Negative In the last yr the pt used illegal drug/Rx for NonMed reason: No Score: Yes response is considered Positive: 0 Screen Result (Positive result requires Nsg. DAST-10): Negative Review of Systems - Review of Systems Comments:: CONSTITUTIONAL:reports fatigue, denies fever, chills, diaphoresis, generalized weakness, loss of appetite HEENT:reports chronic nasal congestion; denies rhinorrhea, sore throat, ear pain, eye pain, visual Changes CARDIOVASCULAR:denies chest pain, syncope, palpitations, lightheadedness RESPIRATORY:denies cough, shortness of breath, wheezing, hemoptysis GASTROINTESTINAL: denies abdominal pain, nausea, vomiting, diarrhea, constipat ion, melena, hematochezia GENITOURINARY:denies dysuria, frequency, urgency, hematuria, flank pain, MUSCULOSKELETAL:reports L hip, knee, ankle pain, athralgia, denies myalgia, neck pain, back pain HEMATOLOGIC/IMMUNOLOGIC:denies easy bleeding, easy bruising ENDOCRINE: denies unexplained weight gain, unexplained weight loss NEUROLOGIC:denies headache, loss of consciousness, dizziness, mental status changes, bladder or bowel incontinence SKIN:denies rash, itching, pallor *Physical Exam - Vital Signs Last Vital Signs Temp Pulse Resp BP Pulse Ox 98.8 F 107 H 16 164/100 97 01/20/20 19:54 01/20/20 19:54 01/20/20 19:54 01/20/20 19:54 01/20/20 19:54 - Physical Exam General: awake, alert, oriented (did not know month), in no acute distress, well developed, well nourished Head: normocephalic, atraumatic Eyes: PERRL, EOMI, anicteric sclera, conjunctiva clear ENT: hearing grossly normal, oropharynx clear without exudates. No nasal congestion Moist mucous membranes Neck: supple, normal ROM Lung: equal breath sounds b/l, CTA b/l, no crackles, wheezes; no distress, speaks full sentences Heart: RRR, normal S1, S2, no murmurs, rubs, gallops Abdomen: soft, non tender, normoactive bowel sounds, no guarding, rebound, masses Extremities: LLE limited ROM, no TTP of L hip, TTP of L knee, effusion of medial knee, knee pain with valgus and varus; no anterior or posterior drawer laxity, 5/5 motor strength with dorsiflexion and plantarflexion of ankle, no erythema or tenderness, DP/PT pulses 2+ and symmetric, no clubbing, cyanosis Neuro: CN2-12 grossly intact, normal speech, sensation intact Skin: warm, dry, no rashes or lesions noted ED Treatment Course - LABORATORY CBC & Chemistry Diagram: 01/21/20 02:21 01/21/20 08:03 Medical Decision Making - Medical Decision Making Pt is 84yo F with PMH HTN, IDDM, gout, asthma who presents s/p mechanical fall, found down after 12h, with worsening L knee pain. Vital Signs Period Temp Pulse Resp BP Sys/[place] Pulse Ox Last 24 Hr 98.6 F-98.8 F 103-107 16-17 125-164/68-100 95-98 DDx: rhabdomyolysis, ICH, CHRIS, quadriceps tendon rupture, meniscal injury Plan: labs, L hip and knee xray, CT head and C spine L hip and knee XR: no obvious fracture or deformity as read by ED staff Labs: no anemia, no leukocytosis, elevated CK, Elevated Cr On reassessment - patient appears confused, reporting a different timing of events than upon arrival to ED, ordered UA, trop, EKG - UA with proteinuria - EKG: HR 108, sinus tachycardia, WA 142ms, QRS 84ms, QTc 471, no ST changes - patient placed into knee immobilizer; attempted to assess weight bearing; patient was very slowly sitting up to stand and appeared to have difficulty bearing full weight on leg. Laboratory Tests 01/20/20 01/20/20 01/20/20 21:30 21:30 21:30 WBC 5.9 RBC 3.86 Hgb 12.4 Hct 37.2 D MCV 96.3 H MCH 32.0 MCHC 33.2 RDW 14.6 Plt Count 153 D MPV 9.5 Absolute Neuts (auto) 4.8 Neutrophils % 82.5 D Lymphocytes % 8.0 D Monocytes % 9.2 Eosinophils % 0.0 D Basophils % 0.3 Nucleated RBC % 0 Sodium 141 Potassium 4.1 Chloride 105 Carbon Dioxide 25 Anion Gap 11 BUN 36.4 H Creatinine 1.8 H Est GFR (CKD-EPI)AfAm 29.44 Est GFR (CKD-EPI)NonAf 25.40 Random Glucose 208 H Calcium 9.5 Total Bilirubin 0.8 AST 41 H ALT 17 Alkaline Phosphatase 113 Creatine Kinase 1141 H Creatine Kinase Index 0.5 CK-MB (CK-2) 5.9 H Troponin I Cancelled 0.05 Total Protein 7.8 Albumin 3.2 L Urine Color Urine Appearance Urine pH Ur Specific [place] Urine Protein Urine Glucose (UA) Urine Ketones Urine Blood Urine Nitrite Urine Bilirubin Urine Urobilinogen Ur Leukocyte Esterase Urine WBC (Auto) Urine RBC (Auto) Urine Casts (Auto) U Epithel Cells (Auto) Urine Bacteria (Auto) 01/20/20 23:10 WBC RBC Hgb Hct MCV MCH MCHC RDW Plt Count MPV Absolute Neuts (auto) Neutrophils % Lymphocytes % Monocytes % Eosinophils % Basophils % Nucleated RBC % Sodium Potassium Chloride Carbon Dioxide Anion Gap BUN Creatinine Est GFR (CKD-EPI)AfAm Est GFR (CKD-EPI)NonAf Random Glucose Calcium Total Bilirubin AST ALT Alkaline Phosphatase Creatine Kinase Creatine Kinase Index CK-MB (CK-2) Troponin I Total Protein Albumin Urine Color Yellow Urine Appearance Clear Urine pH 5.0 Ur Specific [place] 1.019 Urine Protein 3+ H Urine Glucose (UA) Trace Urine Ketones Negative Urine Blood 1+ H Urine Nitrite Negative Urine Bilirubin Negative Urine Urobilinogen 0.2 Ur Leukocyte Esterase Negative Urine WBC (Auto) 5 Urine RBC (Auto) 14 Urine Casts (Auto) 1 U Epithel Cells (Auto) 6 Urine Bacteria (Auto) 3 Pt signed out to Dr. Martinez, who accepted care for patient. Discharge Admit Discharge - Discharge Information Problems reviewed: Yes Clinical Impression/Diagnosis: CHRIS (acute kidney injury) Rhabdomyolysis Qualifiers: Rhabdomyolysis type: traumatic Encounter type: initial encounter Qualified Code(s): T79.6XXA - Traumatic ischemia of muscle, initial encounter Left knee pain Qualifiers: Chronicity: acute Qualified Code(s): M25.562 - Pain in left knee Condition: Stable - Admission Yes - Follow up/Referral - Patient Discharge Instructions - Post Discharge Activity
[2020-01-20] MEDS ORDERED: ACETAMINOPHEN 325 MG TABLET (FP) ONE (21:10)
[2020-01-20] MEDS ORDERED: LIDOCAINE 5% TOPICAL PATCH ONE (21:11)
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
[2020-01-20 21:36] LABS: BASO % 0.3 % (0-2.0); HEMATOCRIT 37.2 % (32.4-45.2); HEMOGLOBIN 12.4 GM/dL (10.7-15.3); MCHC 33.2 g/dl (32.0-36.0); MEAN CELL VOLUME 96.3 fl (80-96); MEAN PLT VOLUME 9.5 fl (7.5-11.1); MONO % 9.2 % (3.8-10.2); NEUT % 82.5 % (42.8-82.8); PLATELET COUNT 153 K/MM3 (134-434); RBC 3.86 M/mm3 (3.60-5.2); RDW 14.6 % (11.6-15.6); WHITE BLOOD COUNT 5.9 K/mm3 (4.0-10.0)
[2020-01-20] MEDS: LIDOCAINE PATCH REMOVAL MC SCH (22:01)
[2020-01-20 22:34] LABS: ALBUMIN 3.2 g/dl (3.4-5.0); BILIRUBIN,TOTAL 0.8 mg/dL (0.2-1); BLOOD UREA NITROGEN 36.4 mg/dL (7-18); CALCIUM 9.5 mg/dL (8.5-10.1); CREATININE 1.8 mg/dL (0.55-1.3); POTASSIUM 4.1 mmol/L (3.5-5.1); TOT PROT 7.8 g/dl (6.4-8.2)
[2020-01-20] MEDS ORDERED: SODIUM CHLORIDE 0.9% 500 ML INFUS.BAG IV ONE (22:59)
[2020-01-20 23:31] LABS: URINE APPEARANCE CLEAR; URINE BILIRUBIN NEGATIVE (NEGATIVE); URINE COLOR YELLOW; URINE KETONE NEGATIVE (NEGATIVE)
[2020-01-20 23:32] LABS: URINE NITRITE NEGATIVE (NEGATIVE); URINE UROBILINOGEN 0.2 mg/dL (0.2-1.0)
[2020-01-20 23:33] LABS: EPI CELLS 6 /uL (0-25.1); HYALINE CASTS 1 /uL (0-3.1); URINE BACTERIA 3 /uL (0-1359); URINE GLUCOSE (UA) TRACE (NEGATIVE); URINE LEUK ESTERASE NEGATIVE (NEGATIVE); URINE PROTEIN 3+ (NEGATIVE); URINE RBC 14 /uL (0-23.9); URINE WBC 5 /uL (0-25.8)
--- NOTE | 2020-01-21 01:07 | HP ---
CHIEF COMPLAINT: Fall PCP: HISTORY OF PRESENT ILLNESS: 84 y.o. F PMHx HTN, HLD, DM, RA, asthma, gout of L ankle, hypothyroidism s/p thyroidectomy due to obstruction, breast cancer s/p radiation completed 3 months ago currently on hormone replacement. Presenting by ambulance due to a fall. Patient is a poor historian with tangential speech. Patient states she was in her kitchen and slipped on part of a banana that she forgot to pickup. Patient states she fell early this morning around 7am and was on the ground until ambulance arrived around 7pm. Pt. stated no loss of consciousness and did not hit her head (fell on the hip). Pt. states she has had ongoing hip pain for the past 2 weeks that contributed to her fall and overall instability (ambulates with a walker). She denies headache, dizziness, SOB, N/V/D, chest pain, dysuria. She has been able to void in the ED and states she is feeling much better. Lives in an apartment by herself and has no recent sick contacts. Patient was recently here on 12/29-12/31 due to leg & back pain and was discharged on cefuroxime & lidocaine patch. ER course was notable for: (1) CT C-spine & head (2) Immobilization of L knee (3) EKG Recent Travel: No PAST MEDICAL HISTORY: HTN, HLD, DM, RA, asthma, gout, hypothyroidism s/p thyroidectomy, breast cancer s/p radiation completed 3 months ago currently on hormone replacement. PAST SURGICAL HISTORY: Abdominal peritonitis, cholecystectomy, R fracture of femur/pelvis, thyroidectomy Social History: Smoking: No Alcohol: No Drugs: No Allergies egg Allergy (Verified 01/20/20 20:13) No Known Drug Allergies Allergy (Verified 01/20/20 20:13) HOME MEDICATIONS: Home Medications Medication Instructions Recorded Albuterol 2.5/Ipratropium 0.5 1 amp NEB DAILY PRN 12/29/17 [Duoneb -] Allopurinol [Zyloprim -] 100 mg PO DAILY 12/29/17 Amlodipine Besylate 10 mg PO DAILY 12/29/17 Anastrozole [Arimidex -] 1 mg PO DAILY 12/29/17 Atorvastatin Calcium 20 mg PO DAILY 12/29/17 B12/Levomefolate Calcium/B-6 1 each PO DAILY 12/29/17 [Foltx Tablet] Levothyroxine Sodium [Levo-T] 100 mcg PO DAILY 12/29/17 Losartan 50Mg/Hctz 12.5MG [Hyzaar 1 tab PO DAILY 12/29/17 -] Cefuroxime Axetil [Cefuroxime] 500 mg PO BID #10 tablet 12/31/17 REVIEW OF SYSTEMS CONSTITUTIONAL: Absent: fever, chills, diaphoresis, generalized weakness, malaise, loss of appetite, weight change HEENT: Absent: rhinorrhea, nasal congestion, throat pain, throat swelling, difficulty swallowing, mouth swelling, ear pain, eye pain, visual changes CARDIOVASCULAR: Absent: chest pain, syncope, palpitations, irregular heart rate, lightheadedness, peripheral edema RESPIRATORY: Absent: cough, shortness of breath, dyspnea with exertion, orthopnea, wheezing, stridor, hemoptysis GASTROINTESTINAL: Absent: abdominal pain, abdominal distension, nausea, vomiting, diarrhea, constipation, melena, hematochezia GENITOURINARY: Absent: dysuria, frequency, urgency, hesitancy, hematuria, flank pain, genital pain MUSCULOSKELETAL: arthralgia, back pain Absent: myalgia, joint swelling, neck pain SKIN: Absent: rash, itching, pallor HEMATOLOGIC/IMMUNOLOGIC: Absent: easy bleeding, easy bruising, lymphadenopathy, frequent infections ENDOCRINE: Absent: unexplained weight gain, unexplained weight loss, heat intolerance, cold intolerance NEUROLOGIC: Absent: headache, focal weakness or paresthesias, dizziness, unsteady gait, seizure, mental status changes, bladder or bowel incontinence PSYCHIATRIC: Absent: anxiety, depression, suicidal or homicidal ideation, hallucinations. PHYSICAL EXAMINATION Vital Signs - 24 hr 01/20/20 01/20/20 01/20/20 19:54 23:36 23:54 Temperature 98.8 F 98.6 F Pulse Rate 107 H Pulse Rate [ 103 H Radial] Respiratory 16 17 Rate Blood Pressure 164/100 Blood Pressure 125/68 [Left Arm] O2 Sat by Pulse 97 98 95 Oximetry (%) GENERAL: Awake, alert, and fully oriented, in no acute distress. HEAD: Normal with no signs of trauma. EYES: Pupils equal, round and reactive to light, extraocular movements intact, sclera anicteric, conjunctiva clear. No lid lag. EARS, NOSE, THROAT: Oropharynx clear without exudates. Moist mucous membranes. NECK: No JVD, or masses. LUNGS: Breath sounds equal, clear to auscultation bilaterally. No wheezes, and no crackles. No accessory muscle use. HEART: Regular rate and rhythm, normal S1 and S2 without murmur, rub or gallop. ABDOMEN: Soft, nontender, not distended, normoactive bowel sounds, no guarding, no rebound, no masses. MUSCULOSKELETAL: reduced range of motion at all joints. LE tenderness. No CVA tenderness. UPPER EXTREMITIES: 2+ pulses, warm, well-perfused. No peripheral edema. LOWER EXTREMITIES: 2+ pulses, warm, well-perfused. No calf tenderness. No peripheral edema. NEUROLOGICAL: Cranial nerves II-XII intact. Normal speech. PSYCHIATRIC: Cooperative. Good eye contact. Appropriate mood and affect. SKIN: Warm, dry, normal turgor, no rashes or lesions noted. Laboratory Results - last 24 hr 01/20/20 01/20/20 01/20/20 21:30 21:30 21:30 WBC 5.9 RBC 3.86 Hgb 12.4 Hct 37.2 D MCV 96.3 H MCH 32.0 MCHC 33.2 RDW 14.6 Plt Count 153 D MPV 9.5 Absolute Neuts (auto) 4.8 Neutrophils % 82.5 D Lymphocytes % 8.0 D Monocytes % 9.2 Eosinophils % 0.0 D Basophils % 0.3 Nucleated RBC % 0 Sodium 141 Potassium 4.1 Chloride 105 Carbon Dioxide 25 Anion Gap 11 BUN 36.4 H Creatinine 1.8 H Est GFR (CKD-EPI)AfAm 29.44 Est GFR (CKD-EPI)NonAf 25.40 Random Glucose 208 H Calcium 9.5 Total Bilirubin 0.8 AST 41 H ALT 17 Alkaline Phosphatase 113 Creatine Kinase 1141 H Creatine Kinase Index 0.5 CK-MB (CK-2) 5.9 H Troponin I Cancelled 0.05 Total Protein 7.8 Albumin 3.2 L Urine Color Urine Appearance Urine pH Ur Specific [place] Urine Protein Urine Glucose (UA) Urine Ketones Urine Blood Urine Nitrite Urine Bilirubin Urine Urobilinogen Ur Leukocyte Esterase Urine WBC (Auto) Urine RBC (Auto) Urine Casts (Auto) U Epithel Cells (Auto) Urine Bacteria (Auto) 01/20/20 23:10 WBC RBC Hgb Hct MCV MCH MCHC RDW Plt Count MPV Absolute Neuts (auto) Neutrophils % Lymphocytes % Monocytes % Eosinophils % Basophils % Nucleated RBC % Sodium Potassium Chloride Carbon Dioxide Anion Gap BUN Creatinine Est GFR (CKD-EPI)AfAm Est GFR (CKD-EPI)NonAf Random Glucose Calcium Total Bilirubin AST ALT Alkaline Phosphatase Creatine Kinase Creatine Kinase Index CK-MB (CK-2) Troponin I Total Protein Albumin Urine Color Yellow Urine Appearance Clear Urine pH 5.0 Ur Specific [place] 1.019 Urine Protein 3+ H Urine Glucose (UA) Trace Urine Ketones Negative Urine Blood 1+ H Urine Nitrite Negative Urine Bilirubin Negative Urine Urobilinogen 0.2 Ur Leukocyte Esterase Negative Urine WBC (Auto) 5 Urine RBC (Auto) 14 Urine Casts (Auto) 1 U Epithel Cells (Auto) 6 Urine Bacteria (Auto) 3 ASSESSMENT/PLAN: 84 y.o. F PMHx HTN, HLD, DM, RA, asthma, gout of L ankle, hypothyroidism s/p thyroidectomy , breast cancer s/p radiation currently on hormone replacement. Presenting due to a fall. # Fall - Mechanical fall secondary to slipping - Previous Hx of orthopedic surgery - Ortho consult (Dr. Hayes) r/o fracture of pubic rami - Vit B12, TSH, Folic acid, syphilis ordered - Tylenol 650mg Q4 PRN # CHRIS on CKD - Cr 1.8, BUN 36.4, GFR <30, CK-MB 5.9, CK 1141, - Trop 0.05; will trend - UA 3+ protein, 1+ blood; rest of UA normal - Urine lytes ordered - Myoglobin & CPK ordered - Renal US # Diabetes - Glucose 208 - BGM's - Renal US - Urine Protein:Cr ratio # Covid r/o - Covid PCR Ordered - PCR ordered due to geographic location of pandemic - Placed in isolation precautions # FEN - NS @ 100mL/hr - NPO due to possible procedure # DVT Prophylaxis - SCD's - Hold mechanical A/C due to potential procedure # Dispo - Patient has been admitted to med surg; will continue to monitor vitals and labs Visit type - Medication Review Med list reviewed for High Risk Meds patients 65 and older: Yes - Emergency Visit Emergency Visit: Yes ED Registration Date: 01/20/20 Care time: The patient presented to the Emergency Department on the above date and was hospitalized for further evaluation of their emergent condition. - New Patient This patient is new to me today: Yes Date on this admission: 01/21/20 - Critical Care Critical Care patient: No ATTENDING PHYSICIAN STATEMENT I saw and evaluated the patient. I reviewed the resident's note and discussed the case with the resident. I agree with the resident's findings and plan as documented. SUBJECTIVE: OBJECTIVE: ASSESSMENT AND PLAN:
--- NOTE | 2020-01-21 01:41 | PN ---
Teaching Attending Note Name of Resident: Alejo Martinez ATTENDING PHYSICIAN STATEMENT I saw and evaluated the patient. I reviewed the resident's note and discussed the case with the resident. I agree with the resident's findings and plan as documented. 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 as per patient she slipped in the kitchen on a piece of banana that was on the floor around 7 AM yesterday. She could not get up by her self and was on the ground till 7 pm when ambulance arrived. No syncopal episode or head trauma. She ambulates with the walker. She has been having left hip pain for last 2 weeks. OBJECTIVE: Last Vital Signs Temp Pulse Resp BP Pulse Ox 98.6 F 103 H 17 125/68 95 01/20/20 23:54 01/20/20 23:54 01/20/20 23:54 01/20/20 23:54 01/20/20 23:54 Laboratory Results - last 24 hr 01/20/20 01/20/20 01/20/20 21:30 21:30 21:30 WBC 5.9 RBC 3.86 Hgb 12.4 Hct 37.2 D MCV 96.3 H MCH 32.0 MCHC 33.2 RDW 14.6 Plt Count 153 D MPV 9.5 Absolute Neuts (auto) 4.8 Neutrophils % 82.5 D Lymphocytes % 8.0 D Monocytes % 9.2 Eosinophils % 0.0 D Basophils % 0.3 Nucleated RBC % 0 Sodium 141 Potassium 4.1 Chloride 105 Carbon Dioxide 25 Anion Gap 11 BUN 36.4 H Creatinine 1.8 H Est GFR (CKD-EPI)AfAm 29.44 Est GFR (CKD-EPI)NonAf 25.40 Random Glucose 208 H Calcium 9.5 Total Bilirubin 0.8 AST 41 H ALT 17 Alkaline Phosphatase 113 Creatine Kinase 1141 H Creatine Kinase Index 0.5 CK-MB (CK-2) 5.9 H Troponin I Cancelled 0.05 Total Protein 7.8 Albumin 3.2 L Urine Color Urine Appearance Urine pH Ur Specific [place] Urine Protein Urine Glucose (UA) Urine Ketones Urine Blood Urine Nitrite Urine Bilirubin Urine Urobilinogen Ur Leukocyte Esterase Urine WBC (Auto) Urine RBC (Auto) Urine Casts (Auto) U Epithel Cells (Auto) Urine Bacteria (Auto) 01/20/20 23:10 WBC RBC Hgb Hct MCV MCH MCHC RDW Plt Count MPV Absolute Neuts (auto) Neutrophils % Lymphocytes % Monocytes % Eosinophils % Basophils % Nucleated RBC % Sodium Potassium Chloride Carbon Dioxide Anion Gap BUN Creatinine Est GFR (CKD-EPI)AfAm Est GFR (CKD-EPI)NonAf Random Glucose Calcium Total Bilirubin AST ALT Alkaline Phosphatase Creatine Kinase Creatine Kinase Index CK-MB (CK-2) Troponin I Total Protein Albumin Urine Color Yellow Urine Appearance Clear Urine pH 5.0 Ur Specific Richardson 1.019 Urine Protein 3+ H Urine Glucose (UA) Trace Urine Ketones Negative Urine Blood 1+ H Urine Nitrite Negative Urine Bilirubin Negative Urine Urobilinogen 0.2 Ur Leukocyte Esterase Negative Urine WBC (Auto) 5 Urine RBC (Auto) 14 Urine Casts (Auto) 1 U Epithel Cells (Auto) 6 Urine Bacteria (Auto) 3 GENERAL: in NAD, normal built HEAD: No signs of trauma EYES: PERRLA, EOMI, sclera anicteric, conjunctiva clear ENT: Auricles normal inspection, hearing grossly normal, nares patent, oropharynx clear without exudates. Moist mucosa NECK: Normal ROM, supple, no lymphadenopathy, JVD, or masses LUNGS: Breath sounds equal, clear to auscultation bilaterally. No wheezes, and no crackles HEART: Regular rate and rhythm, normal S1 and S2, no murmurs, rubs or gallops ABDOMEN: Soft, nontender, normoactive bowel sounds. No guarding, no rebound. No masses EXTREMITIES:left hip tenderness - Decreased ROM left extremity, peripheral pulses palpable, no philipp,a NEUROLOGICAL: Cranial nerves II through XII grossly intact. Normal speech. Motor and sensation intact. Gait not tested due to nature of complaint SKIN: Warm, Dry, normal turgor, no rashes or lesions noted. 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
[2020-01-21] MEDS: SODIUM CHLORIDE 1,000 ML IV SCH ×2 (02:41→15:16)
[2020-01-21 03:11] LABS: BASO % 0.8 % (0-2.0); EOS % 0.2 % (0-4.5); HEMATOCRIT 34.5 % (32.4-45.2); HEMOGLOBIN 11.4 GM/dL (10.7-15.3); LYMPH % 10.6 % (8-40); MCHC 33.1 g/dl (32.0-36.0); MEAN CELL VOLUME 96.8 fl (80-96); MEAN PLT VOLUME 10.5 fl (7.5-11.1); MONO % 15.2 % (3.8-10.2); NEUT % 73.2 % (42.8-82.8); PLATELET COUNT 136 K/MM3 (134-434); RBC 3.56 M/mm3 (3.60-5.2); RDW 14.3 % (11.6-15.6); WHITE BLOOD COUNT 6.4 K/mm3 (4.0-10.0)
[2020-01-21 05:12] LABS: POTASSIUM 3.3 mmol/L (3.5-5.1)
[2020-01-21 05:28] VITALS: BMI 33.8
[2020-01-21] MEDS: INSULIN SLIDING SCALE (NOVOLOG) 1 VIAL SQ SCH ×4 (06:23→22:12)
[2020-01-21] MEDS ORDERED: POTASSIUM CHLORIDE TABS 20 MEQ TABLET.ER (FP) PO ONE (08:11)
[2020-01-21] MEDS ORDERED: ALBUTEROL SO4 2.5/IPRATROPIUM 0.5 INH SOL 3 ML VIAL.NEB. NEB PRN (08:31)
--- NOTE | 2020-01-21 08:35 | PN ---
Progress Note, Physician Chief Complaint: 84 y.o F was admitted last night to [facility] after she was found laying at home on the floor for 12 hrs after a fall. The pt denies LOC, she tried to lift banana from the floor and fell on her buttocks. History of Present Illness: Right breast intraductal carcinoma, treated with RT x3, now on Anastrozole, followed by Dr. Holland. DM type 2 on Novolog/Levemir HTN on Telm-HCT 80-12.5 CKD 3 OA knees Gout PMR Asthma/COPD Hypothyroidism , s/p thyroidectomy MGUS Cytopenias-stable now - Current Medication List Current Medications: Active Medications Acetaminophen (Tylenol -) 650 mg PO Q4H PRN PRN Reason: PAIN LEVEL 7 - 10 Albuterol/Ipratropium (Duoneb -) 1 amp NEB Q6H PRN PRN Reason: SHORTNESS OF BREATH Allopurinol (Zyloprim -) 100 mg PO DAILY [facility] Anastrozole (Arimidex -) 1 mg PO DAILY [facility] Sodium Chloride (Normal Saline -) 1,000 mls @ 125 mls/hr IV ASDIR [facility] Last Admin: 01/21/20 02:41 Dose: 125 mls/hr Documented by: Insulin Aspart (Novolog Vial Sliding Scale -) 1 vial SQ ACHS [facility]; Protocol Last Admin: 01/21/20 06:23 Dose: 2 units Documented by: Insulin Detemir (Levemir Vial) 20 units SQ HS [facility] Levothyroxine Sodium (Synthroid -) 100 mcg PO DAILY@0700 [facility] Losartan Potassium (Cozaar -) 50 mg PO DAILY [facility] Miscellaneous (Lidoderm Patch Removal) 1 each MC DAILY@2200 [facility] Last Admin: 01/20/20 22:01 Dose: 1 each Documented by: Polyethylene Glycol (Miralax (For Daily Use) -) 17 gm PO BID [facility] - Objective Vital Signs: Vital Signs Temperature 99.0 F 01/21/20 05:13 Pulse Rate 96 H 01/21/20 05:13 Respiratory Rate 01/21/20 05:13 Blood Pressure 129/75 01/21/20 05:13 O2 Sat by Pulse Oximetry (%) 95 01/21/20 05:13 Constitutional: Yes: Anxious, Moderate Distress Eyes: Yes: Conjunctiva Clear, EOM Intact HENT: Yes: Atraumatic, Normocephalic Neck: Yes: Supple, Trachea Midline. No: Lymphadenopathy Cardiovascular: Yes: Regular Rate and Rhythm, S1, S2. No: Bradycardia, Tachycardia Respiratory: Yes: Regular, CTA Bilaterally. No: Accessory Muscle Use Gastrointestinal: Yes: Normal Bowel Sounds, Soft. No: Palpable Mass, Tenderness, Vomiting ...Rectal Exam: Yes: Deferred Genitourinary: No: Anuria, Bladder Distention, CVA Tenderness - Left, CVA Tenderness - Right Breast(s): Yes: Right (S/p RT/ lumpectomy) Musculoskeletal: Yes: Other (left knee-brace. Movement knee, hip tender.) Edema: No Peripheral Pulses WNL: Yes Integumentary: Yes: WNL Neurological: Yes: Alert, Oriented, Unsteady Gait. No: Aphasia, Loss of Sensation, Seizure, Tremors, Unresponsive ...Motor Strength: WNL Psychiatric: Yes: WNL. No: Agitated, Suicidal Ideation Labs: CBC, BMP 01/21/20 02:21 01/21/20 02:00 Laboratory Results - last 24 hr 01/20/20 01/20/20 01/20/20 21:30 21:30 21:30 WBC 5.9 RBC 3.86 Hgb 12.4 Hct 37.2 D MCV 96.3 H MCH 32.0 MCHC 33.2 RDW 14.6 Plt Count 153 D MPV 9.5 Absolute Neuts (auto) 4.8 Neutrophils % 82.5 D Lymphocytes % 8.0 D Monocytes % 9.2 Eosinophils % 0.0 D Basophils % 0.3 Nucleated RBC % 0 Sodium 141 Potassium 4.1 Chloride 105 Carbon Dioxide 25 Anion Gap 11 BUN 36.4 H Creatinine 1.8 H Est GFR (CKD-EPI)AfAm 29.44 Est GFR (CKD-EPI)NonAf 25.40 POC Glucometer Random Glucose 208 H Hemoglobin A1c % Calcium 9.5 Total Bilirubin 0.8 AST 41 H ALT 17 Alkaline Phosphatase 113 Creatine Kinase 1141 H Creatine Kinase Index 0.5 CK-MB (CK-2) 5.9 H Troponin I Cancelled 0.05 Total Protein 7.8 Albumin 3.2 L Vitamin B12 Urine Color Urine Appearance Urine pH Ur Specific [place] Urine Protein Urine Glucose (UA) Urine Ketones Urine Blood Urine Nitrite Urine Bilirubin Urine Urobilinogen Ur Leukocyte Esterase Urine WBC (Auto) Urine RBC (Auto) Urine Casts (Auto) U Epithel Cells (Auto) Urine Bacteria (Auto) 01/20/20 01/21/20 01/21/20 23:10 02:00 02:00 WBC RBC Hgb Hct MCV MCH MCHC RDW Plt Count MPV Absolute Neuts (auto) Neutrophils % Lymphocytes % Monocytes % Eosinophils % Basophils % Nucleated RBC % Sodium Potassium Chloride Carbon Dioxide Anion Gap BUN Creatinine Est GFR (CKD-EPI)AfAm Est GFR (CKD-EPI)NonAf POC Glucometer Random Glucose Hemoglobin A1c % Calcium Total Bilirubin AST ALT Alkaline Phosphatase Creatine Kinase 759 H Creatine Kinase Index 0.5 CK-MB (CK-2) 4.3 H Troponin I 0.06 H Total Protein Albumin Vitamin B12 1569 H Urine Color Yellow Urine Appearance Clear Urine pH 5.0 Ur Specific [place] 1.019 Urine Protein 3+ H Urine Glucose (UA) Trace Urine Ketones Negative Urine Blood 1+ H Urine Nitrite Negative Urine Bilirubin Negative Urine Urobilinogen 0.2 Ur Leukocyte Esterase Negative Urine WBC (Auto) 5 Urine RBC (Auto) 14 Urine Casts (Auto) 1 U Epithel Cells (Auto) 6 Urine Bacteria (Auto) 3 01/21/20 01/21/20 01/21/20 02:00 02:00 02:21 WBC 6.4 RBC 3.56 L Hgb 11.4 Hct 34.5 MCV 96.8 H MCH 32.0 MCHC 33.1 RDW 14.3 Plt Count 136 MPV 10.5 D Absolute Neuts (auto) 4.7 Neutrophils % 73.2 Lymphocytes % 10.6 D Monocytes % 15.2 H Eosinophils % 0.2 D Basophils % 0.8 Nucleated RBC % 0 Sodium 146 H Potassium 3.3 L Chloride 116 H Carbon Dioxide 23 Anion Gap 7 L BUN Creatinine Est GFR (CKD-EPI)AfAm Est GFR (CKD-EPI)NonAf POC Glucometer Random Glucose Hemoglobin A1c % 6.6 H Calcium Total Bilirubin AST ALT Alkaline Phosphatase Creatine Kinase Creatine Kinase Index CK-MB (CK-2) Troponin I Total Protein Albumin Vitamin B12 Urine Color Urine Appearance Urine pH Ur Specific [place] Urine Protein Urine Glucose (UA) Urine Ketones Urine Blood Urine Nitrite Urine Bilirubin Urine Urobilinogen Ur Leukocyte Esterase Urine WBC (Auto) Urine RBC (Auto) Urine Casts (Auto) U Epithel Cells (Auto) Urine Bacteria (Auto) 01/21/20 01/21/20 02:47 06:20 WBC RBC Hgb Hct MCV MCH MCHC RDW Plt Count MPV Absolute Neuts (auto) Neutrophils % Lymphocytes % Monocytes % Eosinophils % Basophils % Nucleated RBC % Sodium Potassium Chloride Carbon Dioxide Anion Gap BUN Creatinine Est GFR (CKD-EPI)AfAm Est GFR (CKD-EPI)NonAf POC Glucometer 117 153 Random Glucose Hemoglobin A1c % Calcium Total Bilirubin AST ALT Alkaline Phosphatase Creatine Kinase Creatine Kinase Index CK-MB (CK-2) Troponin I Total Protein Albumin Vitamin B12 Urine Color Urine Appearance Urine pH Ur Specific [place] Urine Protein Urine Glucose (UA) Urine Ketones Urine Blood Urine Nitrite Urine Bilirubin Urine Urobilinogen Ur Leukocyte Esterase Urine WBC (Auto) Urine RBC (Auto) Urine Casts (Auto) U Epithel Cells (Auto) Urine Bacteria (Auto) Problem List - Problems (1) CHRIS (acute kidney injury) Assessment/Plan: Baseline Creat 1.4-1.5. Now elevation Creat- dehydration, Telm/HCT, NS Iv Will replete Problems reviewed: Yes Code(s): N17.9 - ACUTE KIDNEY FAILURE, UNSPECIFIED (2) Left knee pain Assessment/Plan: CT knee, hip r/o occult fx ortho consult PT Rehab after w/u complete. Code(s): M25.562 - PAIN IN LEFT KNEE (3) Rhabdomyolysis Assessment/Plan: mild elevation CPK-will follow. Continue IV NS Problems reviewed: Yes Code(s): M62.82 - RHABDOMYOLYSIS (4) Hypokalemia due to excessive renal loss of potassium Code(s): E87.6 - HYPOKALEMIA (5) Diabetes 1.5, managed as type 1 Assessment/Plan: BGM with coverage Levemir daily with decreased dose. A1C 6.6 Code(s): E13.9 - OTHER SPECIFIED DIABETES MELLITUS WITHOUT COMPLICATIONS (6) HTN (hypertension) Assessment/Plan: Losartan 50 mg QD Problems reviewed: Yes Code(s): I10 - ESSENTIAL (PRIMARY) HYPERTENSION
[2020-01-21 09:20] LABS: INR 1.09 (0.83-1.09); PROTHROMBIN TIME (PATIENT) 12.9 SEC (9.7-13.0)
[2020-01-21 09:23] LABS: ACTIVATED PTT 46.7 SECONDS (25.2-36.5)
--- NOTE | 2020-01-21 09:27 | EKG ---
Test Reason : Blood Pressure : / mmHG Vent. Rate : 092 BPM Atrial Rate : 092 BPM P-R Int : 134 ms QRS Dur : 084 ms QT Int : 378 ms P-R-T Axes : 056 054 067 degrees QTc Int : 467 ms NORMAL SINUS RHYTHM NORMAL ECG WHEN COMPARED WITH ECG OF 20-JAN-2020 21:37, NONSPECIFIC T WAVE ABNORMALITY NO LONGER EVIDENT IN INFERIOR LEADS Confirmed by Conner Faulkner ([id number]) on 01/21/2020 9:26:39 AM Referred By: Confirmed By:Conner Faulkner
--- NOTE | 2020-01-21 09:29 | EKG ---
Test Reason : Blood Pressure : / mmHG Vent. Rate : 108 BPM Atrial Rate : 108 BPM P-R Int : 142 ms QRS Dur : 084 ms QT Int : 352 ms P-R-T Axes : 067 066 053 degrees QTc Int : 471 ms SINUS TACHYCARDIA OTHERWISE NORMAL ECG WHEN COMPARED WITH ECG OF 29-DEC-2017 21:13, NONSPECIFIC T WAVE ABNORMALITY, WORSE IN INFERIOR LEADS Confirmed by Conner Faulkner ([id number]) on 01/21/2020 9:29:31 AM Referred By: Confirmed By:Conner Faulkner
[2020-01-21 09:41] LABS: ALBUMIN 2.7 g/dl (3.4-5.0); BILIRUBIN,TOTAL 0.8 mg/dL (0.2-1); BLOOD UREA NITROGEN 36.1 mg/dL (7-18); CREATININE 1.3 mg/dL (0.55-1.3); MAGNESIUM 2.6 mg/dL (1.8-2.4); PHOSPHOROUS 4.3 mg/dL (2.5-4.9); TOT PROT 6.7 g/dl (6.4-8.2)
[2020-01-21 10:07] LABS: POTASSIUM 3.8 mmol/L (3.5-5.1)
--- NOTE | 2020-01-21 11:59 | CON.ORTH ---
Consult Consult Specialty:: Orthopedics Reason for Consultation:: Left hip and knee pain s/p mechanical fall - History of Present Illness Chief Complaint: Left hip and knee pain History of Present Illness: This is an 84 yo F with PMHx of RA, OA, Gout, HTN, HLD, DM, Hypothyroidism, Asthma and Breast CA who presented to ED s/p unwitnessed mechanical fall at home landing on buttocks. Patient notes aggravated pain to left hip and knee which she had for 2 weeks prior to fall. Pain is felt mostly to anterior hip and throughout left knee. She notes she has been seen for treatment of left knee arthritis and Yao cyst by outpatient orthopedics several times in the past. She also notes being seen by her PCP last week for left lower extremity pain and was prescribed a higher dose of her gout medication. Patient states she uses a walker at baseline at home. Denies any radiating symptoms. - History Source History Provided By: Patient, Medical Record Limitations to Obtaining History: No Limitations - Past Medical History Cardio/Vascular: Yes: HTN, Hyperlipdemia Pulmonary: Yes: Asthma ...: No Rheumatology: Yes: Other (artthritis) Endocrine: Yes: Hypothyroidism - Alcohol/Substance Use Hx Alcohol Use: No - Smoking History Smoking history: Never smoked Have you smoked in the past 12 months: No Aproximately how many cigarettes per day: 0 If you are a former smoker, when did you quit?: 2009 Home Medications - Allergies Allergies/Adverse Reactions: Allergies Allergy/AdvReac Type Severity Reaction Status Date / Time egg Allergy Verified 01/20/20 20:13 No Known Drug Allergies Allergy Verified 01/20/20 20:13 - Home Medications Home Medications: Ambulatory Orders Albuterol 2.5/Ipratropium 0.5 [Duoneb -] 1 amp NEB DAILY PRN 12/29/17 Allopurinol [Zyloprim -] 100 mg PO DAILY 12/29/17 Amlodipine Besylate 10 mg PO DAILY 12/29/17 Levothyroxine Sodium [Levo-T] 100 mcg PO DAILY 12/29/17 Colchicine [Colcrys] 0 mg PO ASDIR 01/21/20 Telmisartan/Hydrochlorothiazid [Telmisartan-Hctz 40-12.5 mg Tb] 1 each PO ASDIR 01/21/20 Review of Systems - Review of Systems Musculoskeletal: reports: Other (Left hip, knee and ankle pain) Physical Exam for Ortho Vital Signs: Vital Signs Temperature 99.0 F 01/21/20 05:13 Pulse Rate 96 H 01/21/20 05:13 Respiratory Rate 01/21/20 05:13 Blood Pressure 129/75 01/21/20 05:13 O2 Sat by Pulse Oximetry (%) 95 01/21/20 05:13 Constitutional: Yes: Well Nourished, No Distress, Calm Labs: CBC, BMP 01/21/20 02:21 01/21/20 08:03 INR, PTT INR 1.09 (0.83-1.09) 01/21/20 08:03 - Lower Extremity Hip: Yes: Left (No skin lesions, swelling, eryethema or increased warmth. Negative log roll. Nontender to palpation of greater tuberosity. NVID.) Knee: Yes: Left (No skins, ecchymosis, erythema, increased warmth. Mild to moderate effusion. Mild posterior swelling. Tenderness to palpation of medial and lateral joint lines. Pain with ROM of knee. ) Ankle: Yes: Left (No skin lesions, echymossis, erythema, increased warmth or swelling. Full ROM with minimal pain. Nontender throughout. NVID. 2+ DP pulses. ) Imaging - Results X-ray: Image Reviewed (3 views of left hip and pelvice show mild degenerative changes. No evidence of fracture or dislocation. 3 views of left knee shows moderate to severe degenereative changes. No evidence of fracture or dislocation.) Cat Scan: Report Reviewed (CT scan of left lower extremity shows mild degenerative changes to left hip and moderated to severe in left knee with suprapatellar effusion and yao cyst without fracture or other acute injury), Image Reviewed Assessment/Plan 84 yo F with PMHx of RA, OA, Gout, HTN, HLD and DM who presented to ED s/p unwitnessed mechanical fall at home. -PE of left lower extremity gives low suspicion of acute fracture -Knee pain likely due to severe osteoarthritis worsened after mechanical fall -CT of left lower extremity reviewed. No evidence of fracture or acute injury seen. -Pain control -Will order PT - WBAT -Follow-up outpatient for further evaluation of osteoarthritis
[2020-01-21] MEDS: ANASTROZOLE 1 MG TABLET PO SCH (12:16)
[2020-01-21] MEDS: ACETAMINOPHEN 325 MG TABLET (FP) PO PRN (12:16)
[2020-01-21] MEDS: ALLOPURINOL 100 MG TABLET (FP) PO SCH (12:16)
[2020-01-21] MEDS: POLYETHYLENE GLYCOL 3350 119 GM BTL PO SCH ×2 (12:18→22:12)
[2020-01-21] MEDS: LOSARTAN POTASSIUM 50 MG TABLET (FP) PO SCH (12:18)
[2020-01-21] MEDS: LIDOCAINE PATCH REMOVAL MC SCH (22:12)
[2020-01-21] MEDS: INSULIN (LEVEMIR) 100 UNITS/ML UNITS SQ SCH (23:03)
[2020-01-22] MEDS: SODIUM CHLORIDE 1,000 ML IV SCH ×2 (02:43→05:42)
[2020-01-22] MEDS: ACETAMINOPHEN 325 MG TABLET (FP) PO PRN ×4 (06:16→23:37)
[2020-01-22] MEDS: LEVOTHYROXINE NA 100 MCG TABLET (FP) PO SCH (06:17)
[2020-01-22] MEDS: INSULIN SLIDING SCALE (NOVOLOG) 1 VIAL SQ SCH ×4 (06:17→21:26)
[2020-01-22 08:21] LABS: BASO % 0.4 % (0-2.0); EOS % 1.1 % (0-4.5); HEMATOCRIT 32.3 % (32.4-45.2); HEMOGLOBIN 10.6 GM/dL (10.7-15.3); LYMPH % 15.4 % (8-40); MCH 31.5 pg (25.7-33.7); MCHC 32.8 g/dl (32.0-36.0); MEAN PLT VOLUME 10.2 fl (7.5-11.1); MONO % 12.5 % (3.8-10.2); NEUT % 70.6 % (42.8-82.8); PLATELET COUNT 113 K/MM3 (134-434); RBC 3.37 M/mm3 (3.60-5.2); RDW 14.4 % (11.6-15.6); WHITE BLOOD COUNT 5.2 K/mm3 (4.0-10.0)
[2020-01-22 08:42] LABS: ALBUMIN 2.3 g/dl (3.4-5.0); BILIRUBIN,TOTAL 0.5 mg/dL (0.2-1); BLOOD UREA NITROGEN 29.6 mg/dL (7-18); CALCIUM 8.5 mg/dL (8.5-10.1); CREATININE 1.2 mg/dL (0.55-1.3); PHOSPHOROUS 2.9 mg/dL (2.5-4.9); POTASSIUM 4.2 mmol/L (3.5-5.1)
[2020-01-22] MEDS: ALLOPURINOL 100 MG TABLET (FP) PO SCH (11:32)
[2020-01-22] MEDS: ANASTROZOLE 1 MG TABLET PO SCH (11:32)
[2020-01-22] MEDS: LOSARTAN POTASSIUM 50 MG TABLET (FP) PO SCH (11:34)
[2020-01-22] MEDS: POLYETHYLENE GLYCOL 3350 119 GM BTL PO SCH ×2 (11:34→21:24)
--- NOTE | 2020-01-22 12:51 | PN ---
Progress Note, Physician Chief Complaint: CT LE-no fracture, OA Left knee, Yao cyst. Ortho f/u appreciated. History of Present Illness: Right breast intraductal carcinoma, treated with RT x3, now on Anastrozole, followed by Dr. Holland. DM type 2 on Novolog/Levemir HTN on Telm-HCT 80-12.5 CKD 3 OA knees Gout PMR Asthma/COPD Hypothyroidism , s/p thyroidectomy MGUS Cytopenias-stable now - Current Medication List Current Medications: Active Medications Acetaminophen (Tylenol -) 650 mg PO Q4H PRN PRN Reason: PAIN LEVEL 7 - 10 Last Admin: 01/22/20 11:32 Dose: 650 mg Documented by: Albuterol/Ipratropium (Duoneb -) 1 amp NEB Q6H PRN PRN Reason: SHORTNESS OF BREATH Allopurinol (Zyloprim -) 100 mg PO DAILY [facility] Last Admin: 01/22/20 11:32 Dose: 100 mg Documented by: Anastrozole (Arimidex -) 1 mg PO DAILY [facility] Last Admin: 01/22/20 11:32 Dose: 1 mg Documented by: Sodium Chloride (Normal Saline -) 1,000 mls @ 125 mls/hr IV ASDIR [facility] Last Admin: 01/22/20 05:42 Dose: 125 mls/hr Documented by: Insulin Aspart (Novolog Vial Sliding Scale -) 1 vial SQ [facility]; Protocol Last Admin: 01/22/20 11:48 Dose: 2 units Documented by: Insulin Detemir (Levemir Vial) 20 units SQ HS [facility] Last Admin: 01/21/20 23:03 Dose: 20 units Documented by: Levothyroxine Sodium (Synthroid -) 100 mcg PO DAILY@0700 [facility] Last Admin: 01/22/20 06:17 Dose: 100 mcg Documented by: Losartan Potassium (Cozaar -) 50 mg PO DAILY [facility] Last Admin: 01/22/20 11:34 Dose: 50 mg Documented by: Miscellaneous (Lidoderm Patch Removal) 1 each MC DAILY@2200 [facility] Last Admin: 01/21/20 22:12 Dose: 1 each Documented by: Polyethylene Glycol (Miralax (For Daily Use) -) 17 gm PO BID [facility] Last Admin: 01/22/20 11:34 Dose: 17 grams Documented by: - Objective Vital Signs: Vital Signs Temperature 98.2 F 01/22/20 12:22 Pulse Rate 93 H 01/22/20 12:22 Respiratory Rate 22 H 01/22/20 12:22 Blood Pressure 105/67 01/22/20 12:22 O2 Sat by Pulse Oximetry (%) 98 01/22/20 12:22 Constitutional: Yes: No Distress Eyes: Yes: Conjunctiva Clear, EOM Intact HENT: Yes: Atraumatic, Normocephalic Neck: Yes: Supple, Trachea Midline Cardiovascular: Yes: Regular Rate and Rhythm, S1, S2 Respiratory: Yes: Regular, CTA Bilaterally Gastrointestinal: Yes: Normal Bowel Sounds, Soft. No: Abdomen, Obese ...Rectal Exam: Yes: Deferred Genitourinary: No: Anuria, Bladder Distention, CVA Tenderness - Left, CVA Tenderness - Right Breast(s): Yes: Right (S/p lumpectomy, RT) Musculoskeletal: Yes: Muscle Weakness Extremities: No: Amputation, Calf Tenderness, Cold Edema: No Integumentary: Yes: WNL Neurological: Yes: Alert, Oriented, Unsteady Gait, Weakness. No: Aphasia, Confusion, Lethargy, Seizure, Tingling, Tremors, Unresponsive ...Motor Strength: WNL, LLE Labs: CBC, BMP 01/22/20 07:17 01/22/20 07:17 INR, PTT INR 1.09 (0.83-1.09) 01/21/20 08:03 Laboratory Results - last 24 hr 01/21/20 01/21/20 01/21/20 02:00 17:31 22:10 WBC RBC Hgb Hct MCV MCH MCHC RDW Plt Count MPV Absolute Neuts (auto) Neutrophils % Lymphocytes % Monocytes % Eosinophils % Basophils % Nucleated RBC % Sodium Potassium Chloride Carbon Dioxide Anion Gap BUN Creatinine Est GFR (CKD-EPI)AfAm Est GFR (CKD-EPI)NonAf POC Glucometer 136 154 Random Glucose Calcium Phosphorus Total Bilirubin AST ALT Alkaline Phosphatase Creatine Kinase Creatine Kinase Index CK-MB (CK-2) Total Protein Albumin COVID-19 ([facility]) Not detected 01/22/20 01/22/20 01/22/20 06:14 07:17 07:17 WBC 5.2 RBC 3.37 L Hgb 10.6 L Hct 32.3 L MCV 96.0 MCH 31.5 MCHC 32.8 RDW 14.4 Plt Count 113 L MPV 10.2 Absolute Neuts (auto) 3.7 Neutrophils % 70.6 Lymphocytes % 15.4 D Monocytes % 12.5 H Eosinophils % 1.1 D Basophils % 0.4 Nucleated RBC % 0 Sodium 142 Potassium 4.2 Chloride 111 H Carbon Dioxide 23 Anion Gap 8 BUN 29.6 H Creatinine 1.2 Est GFR (CKD-EPI)AfAm 48.06 Est GFR (CKD-EPI)NonAf 41.47 POC Glucometer 108 Random Glucose 104 Calcium 8.5 Phosphorus 2.9 Total Bilirubin 0.5 AST 26 ALT 12 L Alkaline Phosphatase 81 Creatine Kinase 464 H Creatine Kinase Index 0.3 CK-MB (CK-2) 1.7 Total Protein 6.0 L Albumin 2.3 L COVID-19 ([facility]) 01/22/20 11:44 WBC RBC Hgb Hct MCV MCH MCHC RDW Plt Count MPV Absolute Neuts (auto) Neutrophils % Lymphocytes % Monocytes % Eosinophils % Basophils % Nucleated RBC % Sodium Potassium Chloride Carbon Dioxide Anion Gap BUN Creatinine Est GFR (CKD-EPI)AfAm Est GFR (CKD-EPI)NonAf POC Glucometer 154 Random Glucose Calcium Phosphorus Total Bilirubin AST ALT Alkaline Phosphatase Creatine Kinase Creatine Kinase Index CK-MB (CK-2) Total Protein Albumin COVID-19 ([facility]) - ....Imaging Cat Scan: Report Reviewed Problem List - Problems (1) CHRIS (acute kidney injury) Assessment/Plan: Creat 1.2 CHRIS resolved. Code(s): N17.9 - ACUTE KIDNEY FAILURE, UNSPECIFIED (2) Left knee pain Assessment/Plan: CT knee-OA ortho consult noted PT Rehab tomorrow Code(s): M25.562 - PAIN IN LEFT KNEE Qualifiers: Chronicity: acute Qualified Code(s): M25.562 - Pain in left knee (3) Rhabdomyolysis Assessment/Plan: mild elevation CPK-will follow. Continue IV NS Code(s): M62.82 - RHABDOMYOLYSIS Qualifiers: Rhabdomyolysis type: traumatic Encounter type: initial encounter Qualified Code(s): T79.6XXA - Traumatic ischemia of muscle, initial encounter (4) Hypokalemia due to excessive renal loss of potassium Assessment/Plan: Stable K. Code(s): E87.6 - HYPOKALEMIA (5) Diabetes 1.5, managed as type 1 Assessment/Plan: BGM with coverage Levemir daily with decreased dose. A1C 6.6 Code(s): E13.9 - OTHER SPECIFIED DIABETES MELLITUS WITHOUT COMPLICATIONS (6) HTN (hypertension) Assessment/Plan: Losartan 50 mg QD Code(s): I10 - ESSENTIAL (PRIMARY) HYPERTENSION Qualifiers: Hypertension type: essential hypertension Qualified Code(s): I10 - Essential (primary) hypertension
--- NOTE | 2020-01-22 12:59 | DS ---
Physical Examination Vital Signs: Vital Signs Temperature 98.2 F 01/22/20 12:22 Pulse Rate 93 H 01/22/20 12:22 Respiratory Rate 22 H 01/22/20 12:22 Blood Pressure 105/67 01/22/20 12:22 O2 Sat by Pulse Oximetry (%) 98 01/22/20 12:22 Constitutional: Yes: No Distress, Calm Eyes: Yes: Conjunctiva Clear, EOM Intact HENT: Yes: Atraumatic, Normocephalic Neck: Yes: Supple, Trachea Midline Cardiovascular: Yes: Regular Rate and Rhythm, S1, S2 Respiratory: Yes: Regular, CTA Bilaterally Gastrointestinal: Yes: Normal Bowel Sounds, Soft. No: Abdomen, Obese ...Rectal Exam: Yes: Deferred Renal/: No: Anuria, Bladder Distention, CVA Tenderness - Left, CVA Tenderness - Right Breast(s): Yes: Left (S/p lumpectomy, RT) Musculoskeletal: Yes: Joint Swelling (left knee), Muscle Weakness Edema: No Neurological: Yes: Alert, Oriented, Weakness. No: Seizure, Tingling, Tremors ...Motor Strength: WNL Psychiatric: Yes: WNL. No: Agitated, Suicidal Ideation Labs: CBC, BMP 01/22/20 07:17 01/22/20 07:17 Discharge Summary Problems reviewed: Yes Reason For Visit: Fall,Left knee pain, CHRIS, Rhabdo, DM2 Current Active Problems CHRIS (acute kidney injury) (Acute) Diabetes 1.5, managed as type 1 (Acute) HTN (hypertension) (Acute) Hypokalemia due to excessive renal loss of potassium (Acute) Left knee pain (Acute) Rhabdomyolysis (Acute) Condition: Stable - Instructions Disposition: RETIREMENT FACILITY - Home Medications Comprehensive Discharge Medication List: Ambulatory Orders Albuterol 2.5/Ipratropium 0.5 [Duoneb -] 1 amp NEB DAILY PRN 12/29/17 Allopurinol [Zyloprim -] 100 mg PO DAILY 12/29/17 Amlodipine Besylate 10 mg PO DAILY 12/29/17 Levothyroxine Sodium [Levo-T] 100 mcg PO DAILY 12/29/17 Colchicine [Colcrys] 0 mg PO ASDIR 01/21/20 Telmisartan/Hydrochlorothiazid [Telmisartan-Hctz 40-12.5 mg Tb] 1 each PO ASDIR 01/21/20
--- NOTE | 2020-01-22 16:02 | CON.PSY ---
Psychiatry Consult Chief Complaint: 84 Year old female with IDDM, Gout and other chronic medical conditions seen for acute AMS , said she was Hallucinating but it all cleraed now. Patient reports that she has been having difficulty with her Land Lord after HB ran away withy another women and tookn all her money.. Feeld swad but denies feeling depressed. Thought she saw her Land Lord inh her apartment but doesw nort see anything orvanyone. No Previous Psych illness. Was given high dose of Gout Meds. - Previous Psychiatric Treatment Outpatient: None Inpatient: None - Previous Substance Abuse Treatment Outpatient: None Inpatient: None - Current Medications Current Medications: Active Medications Acetaminophen (Tylenol -) 650 mg PO Q4H PRN PRN Reason: PAIN LEVEL 7 - 10 Last Admin: 01/22/20 11:32 Dose: 650 mg Documented by: Albuterol/Ipratropium (Duoneb -) 1 amp NEB Q6H PRN PRN Reason: SHORTNESS OF BREATH Allopurinol (Zyloprim -) 100 mg PO DAILY [facility] Last Admin: 01/22/20 11:32 Dose: 100 mg Documented by: Anastrozole (Arimidex -) 1 mg PO DAILY [facility] Last Admin: 01/22/20 11:32 Dose: 1 mg Documented by: Sodium Chloride (Normal Saline -) 1,000 mls @ 125 mls/hr IV ASDIR [facility] Last Admin: 01/22/20 05:42 Dose: 125 mls/hr Documented by: Insulin Aspart (Novolog Vial Sliding Scale -) 1 vial SQ [facility]; Protocol Last Admin: 01/22/20 11:48 Dose: 2 units Documented by: Insulin Detemir (Levemir Vial) 20 units SQ HS [facility] Last Admin: 01/21/20 23:03 Dose: 20 units Documented by: Levothyroxine Sodium (Synthroid -) 100 mcg PO DAILY@0700 [facility] Last Admin: 01/22/20 06:17 Dose: 100 mcg Documented by: Losartan Potassium (Cozaar -) 50 mg PO DAILY [facility] Last Admin: 01/22/20 11:34 Dose: 50 mg Documented by: Miscellaneous (Lidoderm Patch Removal) 1 each MC DAILY@2200 [facility] Last Admin: 01/21/20 22:12 Dose: 1 each Documented by: Polyethylene Glycol (Miralax (For Daily Use) -) 17 gm PO BID [facility] Last Admin: 01/22/20 11:34 Dose: 17 grams Documented by: - Allergies Allergies: Allergies Allergy/AdvReac Type Severity Reaction Status Date / Time egg Allergy Verified 01/20/20 20:13 No Known Drug Allergies Allergy Verified 01/20/20 20:13 - Current Living Status Usual Living Arrangement: Alone - Current Mental Status Evaluation Appearance: Well Groomed Attitude: Cooperative - Affect Affect: Full Range Appropriateness: Appropriate to Content - Mood Mood: Euthymic - Speech/Language Expressive: Coherent - Psychomotor Activity Psychomotor Activity: Normal - Thought Process Thought Process: Intact - Thought Content Hallucinations: Absent Delusions: Absent - Self Perception Self Perception: No Impairment - Cognition Attention: Alert Orientation: Time Memory, Immediate Recall: Intact Memory, Short Term: 3/3 Memory, Remote with Promptin/3 - Concentration Serial Sevens Intact: Yes Simple Calculations Intact: Yes - Abstraction Proverb Interpretation: Intact Judgement: Intact - Insight Insight: Intact - Impulse Control Impulse Control: Good Control - Suicidal Ideation Suicidal Ideation: No - Homicidal Ideation Homicidal Ideation: No Assessment/Plan 10 Probably an organic Hallucinosis from Meds.. Resolved now. 2) No need for any Psych meds.
[2020-01-22] MEDS: LIDOCAINE PATCH REMOVAL MC SCH (21:24)
[2020-01-22] MEDS: INSULIN (LEVEMIR) 100 UNITS/ML UNITS SQ SCH (21:26)
[2020-01-23] MEDS: SODIUM CHLORIDE 1,000 ML IV SCH (02:26)
[2020-01-23] MEDS: ACETAMINOPHEN 325 MG TABLET (FP) PO PRN ×3 (04:34→22:05)
[2020-01-23] MEDS: INSULIN SLIDING SCALE (NOVOLOG) 1 VIAL SQ SCH ×4 (06:41→21:40)
[2020-01-23] MEDS: LEVOTHYROXINE NA 100 MCG TABLET (FP) PO SCH (06:42)
--- NOTE | 2020-01-23 07:49 | PN ---
Progress Note (short form) - Note Progress Note: Psychiatry consult appreciated. Agreed with Rehab for ambulation, transfer, strengthening. Vital Signs - 24 hr 01/22/20 01/22/20 01/22/20 09:00 12:22 14:00 Temperature 98.2 F 98.3 F Pulse Rate 93 H 93 H Respiratory 22 H 20 Rate Blood Pressure 105/67 103/68 O2 Sat by Pulse 95 98 95 Oximetry (%) 01/22/20 01/22/20 01/22/20 18:00 21:00 23:18 Temperature 98.0 F 98.2 F Pulse Rate 81 90 Respiratory 20 18 Rate Blood Pressure 111/67 107/65 O2 Sat by Pulse 95 98 98 Oximetry (%) 01/23/20 01/23/20 01/23/20 01:48 01:49 07:00 Temperature 98.4 F 98.3 F 98.7 F Pulse Rate 76 85 70 Respiratory 18 18 18 Rate Blood Pressure 109/58 L 113/47 L 119/60 O2 Sat by Pulse 98 96 95 Oximetry (%) Current Medications Generic Name Dose Route Start Last Admin Trade Name Freq PRN Reason Stop Dose Admin Acetaminophen 650 mg 01/21/20 02:18 01/23/20 04:34 Tylenol - PO 650 mg Q4H PRN Administration PAIN LEVEL 7 - 10 Albuterol/Ipratropium 1 amp 01/21/20 08:31 Duoneb - NEB Q6H PRN SHORTNESS OF BREATH Allopurinol 100 mg 01/21/20 10:00 01/22/20 11:32 Zyloprim - PO 100 mg DAILY [facility]EN Administration Anastrozole 1 mg 01/21/20 10:00 01/22/20 11:32 Arimidex - PO 1 mg DAILY KAREN Administration Sodium Chloride 1,000 mls @ 125 mls/hr 01/21/20 02:30 01/23/20 02:26 Normal Saline - IV 125 mls/hr ASDIR KAREN Administration Insulin Aspart 1 vial 01/21/20 07:00 01/23/20 06:41 Novolog Vial Sliding Scale - SQ Not Given [facility] Protocol Insulin Detemir 20 units 01/21/20 22:00 01/22/20 21:26 Levemir Vial SQ 20 units HS KAREN Administration Levothyroxine Sodium 100 mcg 01/22/20 07:00 01/23/20 06:42 Synthroid - PO 100 mcg DAILY@0700 KAREN Administration Lidocaine 1 patch 01/23/20 10:00 Lidoderm Patch - TP DAILY [facility]AREN Losartan Potassium 50 mg 01/21/20 10:00 01/22/20 11:34 Cozaar - PO 50 mg DAILY [facility] Administration Miscellaneous 1 each 01/20/20 22:00 01/22/20 21:24 Lidoderm Patch Removal MC Not Given DAILY@2200 [facility] Miscellaneous 1 each 01/23/20 22:00 Lidoderm Patch Removal MC DAILY@2200 [facility] Polyethylene Glycol 17 gm 01/21/20 10:00 01/22/20 21:24 Miralax (For Daily Use) - PO Not Given BID [facility]EN Laboratory Results - last 24 hr 01/22/20 01/22/20 01/22/20 07:17 07:17 11:44 WBC 5.2 RBC 3.37 L Hgb 10.6 L Hct 32.3 L MCV 96.0 MCH 31.5 MCHC 32.8 RDW 14.4 Plt Count 113 L MPV 10.2 Absolute Neuts (auto) 3.7 Neutrophils % 70.6 Lymphocytes % 15.4 D Monocytes % 12.5 H Eosinophils % 1.1 D Basophils % 0.4 Nucleated RBC % 0 Sodium 142 Potassium 4.2 Chloride 111 H Carbon Dioxide 23 Anion Gap 8 BUN 29.6 H Creatinine 1.2 Est GFR (CKD-EPI)AfAm 48.06 Est GFR (CKD-EPI)NonAf 41.47 POC Glucometer 154 Random Glucose 104 Calcium 8.5 Phosphorus 2.9 Total Bilirubin 0.5 AST 26 ALT 12 L Alkaline Phosphatase 81 Creatine Kinase 464 H Creatine Kinase Index 0.3 CK-MB (CK-2) 1.7 Total Protein 6.0 L Albumin 2.3 L 01/22/20 01/22/20 01/23/20 17:30 21:20 06:38 WBC RBC Hgb Hct MCV MCH MCHC RDW Plt Count MPV Absolute Neuts (auto) Neutrophils % Lymphocytes % Monocytes % Eosinophils % Basophils % Nucleated RBC % Sodium Potassium Chloride Carbon Dioxide Anion Gap BUN Creatinine Est GFR (CKD-EPI)AfAm Est GFR (CKD-EPI)NonAf POC Glucometer 106 194 62 Random Glucose Calcium Phosphorus Total Bilirubin AST ALT Alkaline Phosphatase Creatine Kinase Creatine Kinase Index CK-MB (CK-2) Total Protein Albumin PE awake, alert, NAD Lungs are clear Heart S1S2 regular Abdomen soft, NT Back-tender Left knee tender, Current Active Problems Problem Status Onset CHRIS (acute kidney injury) Acute Diabetes 1.5, managed as type 1 Acute HTN (hypertension) Acute Hypokalemia due to excessive renal loss of potassium Acute Left knee pain Acute Rhabdomyolysis Acute Plan D/C to SNF for rehab. Home health services after D/C Problem List - Problems (1) CHRIS (acute kidney injury) Code(s): N17.9 - ACUTE KIDNEY FAILURE, UNSPECIFIED (2) Left knee pain Code(s): M25.562 - PAIN IN LEFT KNEE Qualifiers: Chronicity: acute Qualified Code(s): M25.562 - Pain in left knee (3) Rhabdomyolysis Code(s): M62.82 - RHABDOMYOLYSIS Qualifiers: Rhabdomyolysis type: traumatic Encounter type: initial encounter Qualified Code(s): T79.6XXA - Traumatic ischemia of muscle, initial encounter (4) Hypokalemia due to excessive renal loss of potassium Code(s): E87.6 - HYPOKALEMIA (5) Diabetes 1.5, managed as type 1 Code(s): E13.9 - OTHER SPECIFIED DIABETES MELLITUS WITHOUT COMPLICATIONS (6) HTN (hypertension) Code(s): I10 - ESSENTIAL (PRIMARY) HYPERTENSION Qualifiers: Hypertension type: essential hypertension Qualified Code(s): I10 - Essential (primary) hypertension
[2020-01-23] MEDS: ANASTROZOLE 1 MG TABLET PO SCH (10:16)
[2020-01-23] MEDS: LIDOCAINE 5% TOPICAL PATCH TP SCH (10:17)
[2020-01-23] MEDS: ALLOPURINOL 100 MG TABLET (FP) PO SCH (10:17)
[2020-01-23] MEDS: LOSARTAN POTASSIUM 50 MG TABLET (FP) PO SCH (10:21)
[2020-01-23] MEDS: POLYETHYLENE GLYCOL 3350 119 GM BTL PO SCH ×2 (15:30→21:39)
[2020-01-23] MEDS: INSULIN (LEVEMIR) 100 UNITS/ML UNITS SQ SCH (21:43)
[2020-01-23] MEDS ORDERED: LIDOCAINE PATCH REMOVAL MC SCH (22:00)
[2020-01-23] MEDS: LIDOCAINE PATCH REMOVAL MC SCH (23:19)
[2020-01-24] MEDS: INSULIN SLIDING SCALE (NOVOLOG) 1 VIAL SQ SCH ×2 (06:09→11:42)
[2020-01-24] MEDS: LEVOTHYROXINE NA 100 MCG TABLET (FP) PO SCH (06:21)
--- NOTE | 2020-01-24 08:15 | PN ---
Progress Note, Physician Chief Complaint: Feel better, still left knee pain. Dr Evans consult appreciated. History of Present Illness: Right breast intraductal carcinoma, treated with RT x3, now on Anastrozole, followed by Dr. Holland. DM type 2 on Novolog/Levemir HTN on Telm-HCT 80-12.5 CKD 3 OA knees Gout PMR Asthma/COPD Hypothyroidism , s/p thyroidectomy MGUS Cytopenias-stable now - Current Medication List Current Medications: Active Medications Acetaminophen (Tylenol -) 650 mg PO Q4H PRN PRN Reason: PAIN LEVEL 7 - 10 Last Admin: 01/23/20 22:05 Dose: 650 mg Documented by: Albuterol/Ipratropium (Duoneb -) 1 amp NEB Q6H PRN PRN Reason: SHORTNESS OF BREATH Allopurinol (Zyloprim -) 100 mg PO DAILY [facility] Last Admin: 01/23/20 10:17 Dose: 100 mg Documented by: Anastrozole (Arimidex -) 1 mg PO DAILY [facility] Last Admin: 01/23/20 10:16 Dose: 1 mg Documented by: Insulin Aspart (Novolog Vial Sliding Scale -) 1 vial SQ [facility]; Protocol Last Admin: 01/24/20 06:09 Dose: Not Given Documented by: Insulin Detemir (Levemir Vial) 20 units SQ [facility] Last Admin: 01/23/20 21:43 Dose: 20 units Documented by: Levothyroxine Sodium (Synthroid -) 100 mcg PO DAILY@0700 [facility] Last Admin: 01/24/20 06:21 Dose: 100 mcg Documented by: Lidocaine (Lidoderm Patch -) 1 patch TP DAILY [facility] Last Admin: 01/23/20 10:17 Dose: 1 patch Documented by: Losartan Potassium (Cozaar -) 50 mg PO DAILY [facility] Last Admin: 01/23/20 10:21 Dose: 50 mg Documented by: Miscellaneous (Lidoderm Patch Removal) 1 each MC DAILY@2200 [facility] Last Admin: 01/23/20 23:19 Dose: Not Given Documented by: Miscellaneous (Lidoderm Patch Removal) 1 each MC DAILY@2200 [facility] Last Admin: 01/23/20 22:33 Dose: 1 each Documented by: Polyethylene Glycol (Miralax (For Daily Use) -) 17 gm PO BID [facility] Last Admin: 01/23/20 21:39 Dose: Not Given Documented by: - Objective Vital Signs: Vital Signs Temperature 98.7 F 01/24/20 06:00 Pulse Rate 67 01/24/20 06:00 Respiratory Rate 18 01/24/20 06:00 Blood Pressure 130/61 01/24/20 06:00 O2 Sat by Pulse Oximetry (%) 91 L 01/24/20 06:00 Constitutional: Yes: No Distress, Calm Eyes: Yes: Conjunctiva Clear, EOM Intact HENT: Yes: Atraumatic, Normocephalic Neck: Yes: Supple, Trachea Midline Cardiovascular: Yes: Regular Rate and Rhythm, S1 Respiratory: Yes: Regular, CTA Bilaterally Gastrointestinal: Yes: Normal Bowel Sounds, Soft Genitourinary: No: Anuria, Bladder Distention Breast(s): Yes: Right (s/p lumpectomy) Extremities: No: Calf Tenderness, Cold, Cool, Cyanosis Neurological: Yes: Alert, Oriented. No: Aphasia, Numbness, Paresthesia, Unsteady Gait ...Motor Strength: WNL Psychiatric: Yes: WNL Labs: CBC, BMP 01/22/20 07:17 01/22/20 07:17 INR, PTT INR 1.09 (0.83-1.09) 01/21/20 08:03 Laboratory Results - last 24 hr 01/23/20 01/23/20 01/23/20 11:38 16:39 21:35 POC Glucometer 113 153 143 01/24/20 06:04 POC Glucometer 88 Problem List - Problems (1) CHRIS (acute kidney injury) Assessment/Plan: Creat 1.2 CHRIS resolved. Code(s): N17.9 - ACUTE KIDNEY FAILURE, UNSPECIFIED (2) Left knee pain Assessment/Plan: CT knee-OA ortho consult noted PT Rehab tomorrow Code(s): M25.562 - PAIN IN LEFT KNEE Qualifiers: Chronicity: acute Qualified Code(s): M25.562 - Pain in left knee (3) Rhabdomyolysis Assessment/Plan: mild elevation CPK-will follow. Continue IV NS Code(s): M62.82 - RHABDOMYOLYSIS Qualifiers: Rhabdomyolysis type: traumatic Encounter type: initial encounter Qualified Code(s): T79.6XXA - Traumatic ischemia of muscle, initial encounter (4) Hypokalemia due to excessive renal loss of potassium Assessment/Plan: Stable K. Code(s): E87.6 - HYPOKALEMIA (5) Diabetes 1.5, managed as type 1 Assessment/Plan: BGM with coverage Levemir daily with decreased dose. A1C 6.6 Code(s): E13.9 - OTHER SPECIFIED DIABETES MELLITUS WITHOUT COMPLICATIONS (6) HTN (hypertension) Assessment/Plan: Losartan 50 mg QD Code(s): I10 - ESSENTIAL (PRIMARY) HYPERTENSION Qualifiers: Hypertension type: essential hypertension Qualified Code(s): I10 - Essential (primary) hypertension
[2020-01-24] MEDS: ALLOPURINOL 100 MG TABLET (FP) PO SCH (10:10)
[2020-01-24] MEDS: ANASTROZOLE 1 MG TABLET PO SCH (10:10)
[2020-01-24] MEDS: ACETAMINOPHEN 325 MG TABLET (FP) PO PRN (10:10)
[2020-01-24] MEDS: LIDOCAINE 5% TOPICAL PATCH TP SCH (10:11)
[2020-01-24] MEDS: LOSARTAN POTASSIUM 50 MG TABLET (FP) PO SCH (10:11)
[2020-01-24] MEDS: POLYETHYLENE GLYCOL 3350 119 GM BTL PO SCH (10:14)
[2020-01-24 10:28] VITALS: BP 119/72; PULSE 82; TEMP 98.9
== END 2020-01-24 14:11 | DRG 565 ==
LOC: JER 19:45 → JERBED 23:35 → J5S 01-21 04:30
PROVIDERS: ADMIT Internal Medicine; ATTEND Internal Medicine
DX: T79.6XXA Traumatic ischemia of muscle, initial encounter (principal); N17.9 Acute kidney failure, unspecified; R44.2 Other hallucinations; E11.9 Type 2 diabetes mellitus without complications; I10 Essential (primary) hypertension; M10.9 Gout, unspecified; E78.00 Pure hypercholesterolemia, unspecified; E03.9 Hypothyroidism, unspecified; M06.9 Rheumatoid arthritis, unspecified; C50.911 Malignant neoplasm of unspecified site of right female breast; E87.6 Hypokalemia; J44.9 Chronic obstructive pulmonary disease, unspecified; I12.9 Hypertensive chronic kidney disease with stage 1 through stage 4 chronic kidney disease, or unspecified chronic kidney disease; E11.22 Type 2 diabetes mellitus with diabetic chronic kidney disease; N18.3 Chronic kidney disease, stage 3 (moderate); W19.XXXA Unspecified fall, initial encounter; J45.909 Unspecified asthma, uncomplicated; M17.0 Bilateral primary osteoarthritis of knee; D47.2 Monoclonal gammopathy; M25.462 Effusion, left knee; M71.22 Synovial cyst of popliteal space [Baker], left knee; R41.82 Altered mental status, unspecified
CPT/HCPCS: 36415; 70450-TC; 71045-TC-FY; 72125-TC; 73523-TC-FY; 73564-TC-LT-FY; 73700-TC-RT; 76775-TC; 80051; 80053; 81003; 82550; 82553; 82607; 82746; 82962; 83036; 83735; 84100; 84443; 84484; 85025; 85610; 85730; 86780; 87086; 93005; 93010; 97116-GP; 97162-GP; 99285-25; U0003

== ENCOUNTER 2020-06-19 11:10 | Inpatient (IN) | payer OTHER ==
[2020-06-19] MEDS ORDERED: DEXTROSE 50%-WATER - 25 GM/50 ML VIAL IVPUSH ONE (11:44)
[2020-06-19] MEDS ORDERED: DEXTROSE 50%-WATER 25 GM/50 ML DISP.SYRIN ONE (11:51)
[2020-06-19 12:08] VITALS: BMI 29.0
[2020-06-19] MEDS: DEXTROSE 5%-NORMAL SALINE 1,000 ML IV SCH (12:09)
[2020-06-19 12:33] LABS: BASO % 0.3 % (0-2.0); EOS % 0.9 % (0-4.5); HEMATOCRIT 39.2 % (32.4-45.2); LYMPH % 20.9 % (8-40); MCH 31.4 pg (25.7-33.7); MCHC 33.2 g/dl (32.0-36.0); MEAN CELL VOLUME 94.5 fl (80-96); MEAN PLT VOLUME 9.9 fl (7.5-11.1); NEUT % 67.9 % (42.8-82.8); PLATELET COUNT 203 K/MM3 (134-434); RBC 4.14 M/mm3 (3.60-5.2); RDW 16.5 % (11.6-15.6); WHITE BLOOD COUNT 3.7 K/mm3 (4.0-10.0)
[2020-06-19 12:40] LABS: INR 0.92 (0.83-1.09); PROTHROMBIN TIME (PATIENT) 11.2 SEC (9.7-13.0)
[2020-06-19 12:42] LABS: ACTIVATED PTT 29.5 SECONDS (25.2-36.5)
[2020-06-19 12:51] LABS: POTASSIUM 3.6 mmol/L (3.5-5.1)
[2020-06-19 12:53] LABS: CALCIUM 9.6 mg/dL (8.5-10.1)
[2020-06-19 12:54] LABS: BLOOD UREA NITROGEN 13.8 mg/dL (7-18); MAGNESIUM 2.4 mg/dL (1.8-2.4)
[2020-06-19 12:57] LABS: CREATININE 1.1 mg/dL (0.55-1.3)
[2020-06-19 12:58] LABS: BILIRUBIN,TOTAL 0.5 mg/dL (0.2-1)
[2020-06-19 12:59] LABS: TOT PROT 7.5 g/dl (6.4-8.2)
[2020-06-19] MEDS ORDERED: LACTATED RINGERS SOLUTION 1000 ML INFUS.BAG IV ONE (13:17)
[2020-06-19 13:54] LABS: EPI CELLS 20 /uL (0-25.1); HYALINE CASTS 7 /uL (0-3.1); URINE APPEARANCE CLOUDY; URINE BACTERIA 854 /uL (0-1359); URINE BILIRUBIN NEGATIVE (NEGATIVE); URINE COLOR YELLOW; URINE GLUCOSE (UA) NEGATIVE (NEGATIVE); URINE KETONE TRACE (NEGATIVE); URINE LEUK ESTERASE 1+ (NEGATIVE); URINE NITRITE NEGATIVE (NEGATIVE); URINE PROTEIN 4+ (NEGATIVE); URINE WBC 402 /uL (0-25.8)
[2020-06-19 14:16] LABS: URINE RBC 54.8 /uL (0-23.9); YEAST PRESENT (NEGATIVE)
[2020-06-19] MEDS ORDERED: CEFTRIAXONE 1 GM in DEXTROSE 5%-WATER - 100 ML IVPB ONE (14:22)
[2020-06-19 14:47] LABS: VENOUS O2 SATURATION 73.9 % (70-80); VENOUS PCO2 38.2 mmHg (38-52); VENOUS PH 7.45 (7.310-7.410)
[2020-06-19] MEDS ORDERED: CEFTRIAXONE 1 GM/50 ML BAG ONE (15:36)
[2020-06-20] MEDS ORDERED: ACETAMINOPHEN 325 MG TABLET (FP) PO ONE (06:42)
[2020-06-20] MEDS ORDERED: cefTRIAXone SODIUM 1 GM VIAL ONE (09:09)
[2020-06-20] MEDS ORDERED: DEXTROSE 5%-WATER - 50 ML IVPB ONE (09:09)
[2020-06-20] MEDS: CEFTRIAXONE 1 GM in DEXTROSE 5%-WATER - 50 ML IVPB SCH (10:04)
[2020-06-20] MEDS: DEXTROSE 5%-NORMAL SALINE 1,000 ML IV SCH ×2 (10:08→14:21)
[2020-06-20] MEDS: HEPARIN NA (PORCINE) 5,000 UNITS/ML 1ML VIAL SQ SCH ×2 (15:20→22:45)
[2020-06-20] MEDS: INSULIN SLIDING SCALE (NOVOLOG) 1 VIAL SQ SCH ×2 (17:26→22:44)
[2020-06-21] MEDS ORDERED: ACETAMINOPHEN 325 MG TABLET (FP) PO ONE ×2 (01:48→21:50)
[2020-06-21] MEDS: HEPARIN NA (PORCINE) 5,000 UNITS/ML 1ML VIAL SQ SCH ×3 (06:47→22:00)
[2020-06-21] MEDS: INSULIN SLIDING SCALE (NOVOLOG) 1 VIAL SQ SCH ×4 (06:55→21:59)
[2020-06-21 07:48] LABS: POTASSIUM 3.7 mmol/L (3.5-5.1)
[2020-06-21 07:57] LABS: BASO % 0.6 % (0-2.0); HEMATOCRIT 30.3 % (32.4-45.2); HEMOGLOBIN 10.2 GM/dL (10.7-15.3); LYMPH % 31.2 % (8-40); MCH 31.5 pg (25.7-33.7); MCHC 33.6 g/dl (32.0-36.0); MEAN CELL VOLUME 93.9 fl (80-96); MEAN PLT VOLUME 9.3 fl (7.5-11.1); MONO % 12.2 % (3.8-10.2); PLATELET COUNT 162 K/MM3 (134-434); RBC 3.22 M/mm3 (3.60-5.2); RDW 16.2 % (11.6-15.6); WHITE BLOOD COUNT 3.2 K/mm3 (4.0-10.0)
[2020-06-21 08:00] LABS: ALBUMIN 2.1 g/dl (3.4-5.0); BLOOD UREA NITROGEN 13.8 mg/dL (7-18); CALCIUM 8.2 mg/dL (8.5-10.1); MAGNESIUM 2.2 mg/dL (1.8-2.4)
[2020-06-21 08:03] LABS: CREATININE 1.2 mg/dL (0.55-1.3)
[2020-06-21 08:04] LABS: PHOSPHOROUS 4.5 mg/dL (2.5-4.9)
[2020-06-21 08:09] LABS: TOT PROT 5.4 g/dl (6.4-8.2)
[2020-06-21] MEDS ORDERED: PT OWN MED DRAWER 7, Y5N ONE (09:41)
[2020-06-21] MEDS ORDERED: cefTRIAXone SODIUM 1 GM VIAL ONE (09:41)
[2020-06-21] MEDS ORDERED: DEXTROSE 5%-WATER - 50 ML IVPB ONE (09:42)
[2020-06-21] MEDS: ALLOPURINOL 100 MG TABLET (FP) PO SCH (09:52)
[2020-06-21] MEDS: LEVOTHYROXINE NA 100 MCG TABLET (FP) PO SCH (09:53)
[2020-06-21] MEDS: COLCHICINE 0.6 MG TAB PO SCH (09:53)
[2020-06-21] MEDS: CEFTRIAXONE 1 GM in DEXTROSE 5%-WATER - 50 ML IVPB SCH ×2 (11:25→14:59)
[2020-06-21] MEDS: CEFUROXIME AXETIL 250 MG TABLET PO SCH ×2 (14:41→22:00)
[2020-06-21] MEDS: DEXTROSE 5%-NORMAL SALINE 1,000 ML IV SCH (14:59)
[2020-06-22] MEDS: INSULIN SLIDING SCALE (NOVOLOG) 1 VIAL SQ SCH ×4 (06:09→22:00)
[2020-06-22] MEDS: HEPARIN NA (PORCINE) 5,000 UNITS/ML 1ML VIAL SQ SCH ×3 (06:09→21:29)
[2020-06-22 07:17] LABS: BASO % 0.8 % (0-2.0); EOS % 3.8 % (0-4.5); HEMOGLOBIN 10.2 GM/dL (10.7-15.3); LYMPH % 32.3 % (8-40); MCH 31.7 pg (25.7-33.7); MEAN CELL VOLUME 93.4 fl (80-96); MEAN PLT VOLUME 9.3 fl (7.5-11.1); MONO % 15.2 % (3.8-10.2); NEUT % 47.9 % (42.8-82.8); PLATELET COUNT 166 K/MM3 (134-434); RBC 3.21 M/mm3 (3.60-5.2); RDW 16.2 % (11.6-15.6); WHITE BLOOD COUNT 2.6 K/mm3 (4.0-10.0)
[2020-06-22 07:21] LABS: POTASSIUM 3.9 mmol/L (3.5-5.1)
[2020-06-22 07:23] LABS: CALCIUM 8.4 mg/dL (8.5-10.1)
[2020-06-22 07:24] LABS: BLOOD UREA NITROGEN 12.4 mg/dL (7-18)
[2020-06-22 07:27] LABS: CREATININE 1.2 mg/dL (0.55-1.3)
[2020-06-22] MEDS ORDERED: PT OWN MED DRAWER 7, Y5N ONE (08:59)
[2020-06-22] MEDS: COLCHICINE 0.6 MG TAB PO SCH (09:12)
[2020-06-22] MEDS: CEFUROXIME AXETIL 250 MG TABLET PO SCH ×2 (09:12→21:28)
[2020-06-22] MEDS: LEVOTHYROXINE NA 100 MCG TABLET (FP) PO SCH (09:12)
[2020-06-22] MEDS: ALLOPURINOL 100 MG TABLET (FP) PO SCH (09:12)
[2020-06-22] MEDS ORDERED: INSULIN (NOVOLOG) ASPART 100 UNITS/ML 10ML VIAL ONE (13:48)
[2020-06-22] MEDS ORDERED: ACETAMINOPHEN 325 MG TABLET (FP) PO ONE (21:21)
[2020-06-23] MEDS: HEPARIN NA (PORCINE) 5,000 UNITS/ML 1ML VIAL SQ SCH (05:46)
[2020-06-23] MEDS: INSULIN SLIDING SCALE (NOVOLOG) 1 VIAL SQ SCH ×2 (06:16→11:49)
[2020-06-23 07:29] LABS: BASO % 0.7 % (0-2.0); EOS % 3.3 % (0-4.5); HEMATOCRIT 29.9 % (32.4-45.2); HEMOGLOBIN 10.2 GM/dL (10.7-15.3); LYMPH % 27.7 % (8-40); MCH 32.1 pg (25.7-33.7); MCHC 34.1 g/dl (32.0-36.0); MEAN CELL VOLUME 94.2 fl (80-96); MEAN PLT VOLUME 9.3 fl (7.5-11.1); MONO % 14.6 % (3.8-10.2); NEUT % 53.7 % (42.8-82.8); PLATELET COUNT 157 K/MM3 (134-434); RBC 3.17 M/mm3 (3.60-5.2); RDW 16.2 % (11.6-15.6)
[2020-06-23 07:42] LABS: POTASSIUM 4.2 mmol/L (3.5-5.1)
[2020-06-23 07:45] LABS: BLOOD UREA NITROGEN 13.4 mg/dL (7-18); CALCIUM 8.5 mg/dL (8.5-10.1)
[2020-06-23 07:49] LABS: CREATININE 1.1 mg/dL (0.55-1.3)
[2020-06-23] MEDS ORDERED: TAMSULOSIN HCL 0.4 MG CAP PO SCH (08:30)
[2020-06-23 08:32] VITALS: BP 124/68; PULSE 83; TEMP 99.9
[2020-06-23] MEDS: COLCHICINE 0.6 MG TAB PO SCH (11:04)
[2020-06-23] MEDS: CEFUROXIME AXETIL 250 MG TABLET PO SCH (11:05)
[2020-06-23] MEDS: LEVOTHYROXINE NA 100 MCG TABLET (FP) PO SCH (11:05)
[2020-06-23] MEDS: ALLOPURINOL 100 MG TABLET (FP) PO SCH (11:05)
== END 2020-06-23 13:32 | DRG 690 ==
LOC: JER 11:10 → JERBED 17:50 → J4W 06-20 07:38
DX: N39.0 Urinary tract infection, site not specified (principal); I10 Essential (primary) hypertension; E03.9 Hypothyroidism, unspecified; E11.9 Type 2 diabetes mellitus without complications; E11.649 Type 2 diabetes mellitus with hypoglycemia without coma; R55 Syncope and collapse; R33.9 Retention of urine, unspecified; E78.5 Hyperlipidemia, unspecified; R29.6 Repeated falls; M10.9 Gout, unspecified; J45.909 Unspecified asthma, uncomplicated
CPT/HCPCS: 36415; 70450-TC; 70486-TC; 71045-TC-FY; 72125-TC; 73560-TC-LT-FY; 76856-TC; 80048; 80053; 81003; 82010; 82550; 82553; 82803; 82962; 83735; 84100; 84443; 84484; 85025; 85610; 85730; 86850; 86900; 86901; 87086; 93005; 93010; 93306-TC; 93880-TC; 97116-GP; 97162-GP; 99285-25; C9803; J1644; U0003

== ENCOUNTER 2024-04-14 03:26 | Inpatient (IN) | payer OTHER ==
[2024-04-14 03:35] VITALS: BMI 24.2
[2024-04-14] MEDS ORDERED: CEFEPIME 1 GM/100 ML BAG IVPB ONE (04:59)
[2024-04-14] MEDS: CEFEPIME HCL 1 GM VIAL (RESTRICTED TO ID) IVPB ONE (05:09)
[2024-04-14] MEDS ORDERED: VANCOMYCIN 1 GRAM (PRE-DOCKED) 1,000 MG/250 ML BAG IVPB ONE (05:31)
[2024-04-14 05:32] LABS: INR 1.05 (0.83-1.09); PROTHROMBIN TIME (PATIENT) 11.9 SEC (9.7-13.0)
[2024-04-14 05:35] LABS: ACTIVATED PTT 31.2 SECONDS (25.2-36.5)
[2024-04-14 05:39] LABS: POTASSIUM 4.4 mmol/L (3.5-5.1)
[2024-04-14 05:42] LABS: ALBUMIN 2.3 g/dl (3.4-5.0); BLOOD UREA NITROGEN 25.8 mg/dL (7-18); CALCIUM 8.4 mg/dL (8.5-10.1)
[2024-04-14 05:45] LABS: EOS % 3.2 % (0-4.5); HEMATOCRIT 23.2 % (32.4-45.2); HEMOGLOBIN 7.6 GM/dL (10.7-15.3); LYMPH % 20.8 % (8-40); MCH 32.7 pg (25.7-33.7); MCHC 32.6 g/dl (32.0-36.0); MEAN CELL VOLUME 100.5 fl (80-96); MEAN PLT VOLUME 8.8 fl (7.5-11.1); MONO % 14.2 % (3.8-10.2); NEUT % 60.8 % (42.8-82.8); PLATELET COUNT 171 10^3/uL (134-434); RBC 2.31 M/mm3 (3.60-5.2); RDW 19.9 % (11.6-15.6); WHITE BLOOD COUNT 3.8 K/mm3 (4.0-10.0)
[2024-04-14 05:46] LABS: CREATININE 1.8 mg/dL (0.55-1.3)
[2024-04-14 05:47] LABS: TOT PROT 6.3 g/dl (6.4-8.2)
[2024-04-14] MEDS: VANCOMYCIN 1,000 MG in DEXTROSE 5%-WATER - 250 ML IVPB ONE (06:17)
[2024-04-14 08:36] LABS: BILIRUBIN,TOTAL 0.2 mg/dL (0.2-1)
[2024-04-14] MEDS ORDERED: FUROSEMIDE 40 MG TABLET (FP) PO SCH (10:00)
[2024-04-14 10:25] LABS: N-TERMINAL BNP 1973.5 pg/ml (5-450)
[2024-04-14] MEDS ORDERED: ALBUTEROL SO4 0.083% IH SOL 2.5 MG/3 ML VIAL.NEB. NEB PRN (11:18)
[2024-04-14] MEDS ORDERED: ONDANSETRON 4 MG TABLET PO PRN (11:18)
[2024-04-14] MEDS ORDERED: ACETAMINOPHEN 325 MG TABLET (FP) PO PRN (11:18)
[2024-04-14 11:59] VITALS: BP 139/59; PULSE 71; RESP 20; TEMP 98
[2024-04-14] MEDS ORDERED: METOPROLOL TARTRATE 25 MG TABLET (FP) ONE (13:00)
[2024-04-14] MEDS ORDERED: LOSARTAN POTASSIUM 25 MG TABLET ONE (13:00)
[2024-04-14] MEDS ORDERED: FUROSEMIDE 40 MG TABLET (FP) ONE ×2 (13:00→13:02)
[2024-04-14] MEDS ORDERED: LEVOTHYROXINE NA 100 MCG TABLET (FP) ONE (13:01)
[2024-04-14] MEDS ORDERED: amLODIPine BESYLATE 10 MG TABLET (FP) ONE (13:01)
[2024-04-14] MEDS ORDERED: MIRTAZAPINE 15 MG TABLET (FP) ONE (13:01)
[2024-04-14] MEDS ORDERED: GABAPENTIN 100 MG CAPSULE ONE (13:02)
[2024-04-14] MEDS: amLODIPine BESYLATE 10 MG TABLET (FP) PO SCH (13:09)
[2024-04-14] MEDS: PANTOPRAZOLE 40 MG TABLET PO SCH (13:09)
[2024-04-14] MEDS: LOSARTAN POTASSIUM 25 MG TABLET PO SCH (13:09)
[2024-04-14] MEDS: LEVOTHYROXINE NA 100 MCG TABLET (FP) PO SCH (13:09)
[2024-04-14] MEDS: MIRTAZAPINE 15 MG TABLET (FP) PO SCH (13:10)
[2024-04-14] MEDS: FUROSEMIDE 40 MG TABLET (FP) PO SCH (13:10)
[2024-04-14] MEDS: METOPROLOL TARTRATE 25 MG TABLET (FP) PO SCH (13:10)
[2024-04-14] MEDS: ANASTROZOLE 1 MG TABLET PO SCH (13:11)
[2024-04-14] MEDS: SILVER SULFADIAZINE 1% TOP CREAM 400 GM JAR TP SCH (17:13)
[2024-04-15] MEDS ORDERED: PATIENT'S OWN MEDICATION (NON-FORMULARY) (Fluticasone/Vilanterol 1 PUFF Inhaler) IH SCH (10:00)
[2024-04-15] MEDS ORDERED: GABAPENTIN 100 MG CAPSULE PO SCH (10:00)
[2024-04-15] MEDS ORDERED: ALLOPURINOL 100 MG TABLET (FP) PO SCH (10:00)
== END 2024-04-14 22:49 | disposition home or self-care (01) | DRG 811 ==
LOC: JER 03:26 → JERBED 06:24
PROVIDERS: ADMIT Internal Medicine; ATTEND Internal Medicine
DX: D63.8 Anemia in other chronic diseases classified elsewhere (principal); J18.9 Pneumonia, unspecified organism; I50.22 Chronic systolic (congestive) heart failure; N17.9 Acute kidney failure, unspecified; J44.0 Chronic obstructive pulmonary disease with (acute) lower respiratory infection; E03.9 Hypothyroidism, unspecified; I11.0 Hypertensive heart disease with heart failure; E78.5 Hyperlipidemia, unspecified; I25.10 Atherosclerotic heart disease of native coronary artery without angina pectoris; J44.9 Chronic obstructive pulmonary disease, unspecified; K21.9 Gastro-esophageal reflux disease without esophagitis; E87.70 Fluid overload, unspecified; F03.90 Unspecified dementia, unspecified severity, without behavioral disturbance, psychotic disturbance, mood disturbance, and anxiety; E11.9 Type 2 diabetes mellitus without complications; Z85.3 Personal history of malignant neoplasm of breast; Z86.73 Personal history of transient ischemic attack (TIA), and cerebral infarction without residual deficits
CPT/HCPCS: 0241U-QW; 36415; 71045-TC-FY; 80053; 82272; 82607; 82728; 82746; 83540; 83550; 83605; 83880; 85025; 85610; 85730; 86850; 86900; 86901; 93005; 93010; 99285-25

== ENCOUNTER 2024-12-28 11:04 | Inpatient (IN) | payer OTHER ==
[2024-12-28] MEDS ORDERED: HALOPERIDOL LACTATE 5 MG/ML ONE (15:28)
[2024-12-28] MEDS: HALOPERIDOL LACTATE 5 MG/ML IM ONE (15:34)
[2024-12-28 16:17] LABS: MCHC 33.1 g/dl (32.2-35.5); MEAN CELL VOLUME 98.6 fl (79.4-94.8); MEAN PLT VOLUME 12.0 fl (9.4-12.3); RDW 13.2 % (12.5-17.0)
[2024-12-28 16:40] LABS: CO2 28.0 mmol/L (21-32); GLUCOSE,RANDOM 197.0 mg/dL (74-106)
[2024-12-28 16:43] LABS: CREATININE 2.2 mg/dL (0.55-1.3); SGOT/AST 19.0 U/L (15-37); SGPT/ALT 10.0 U/L (13-61)
[2024-12-28 16:45] LABS: TOT PROT 7.4 g/dl (6.4-8.2)
[2024-12-28 16:46] LABS: ALK PHOS 160.0 U/L (45-117)
[2024-12-28 17:10] LABS: EPI CELLS >36 /uL (0-25.1); HYALINE CASTS 2 /uL (0-3.1); URINE APPEARANCE CLOUDY; URINE BACTERIA 85 /uL (0-1359); URINE BILIRUBIN NEGATIVE (NEGATIVE); URINE COLOR YELLOW; URINE GLUCOSE (UA) TRACE (NEGATIVE); URINE KETONE NEGATIVE (NEGATIVE); URINE LEUK ESTERASE 2+ (NEGATIVE); URINE NITRITE NEGATIVE (NEGATIVE); URINE PROTEIN 2+ (NEGATIVE); URINE RBC 181 /uL (0-23.9); URINE UROBILINOGEN 0.2 mg/dL (0.2-1.0); URINE WBC 341 /uL (0-25.8)
[2024-12-28 23:15] VITALS: BMI 22.1
[2024-12-29] MEDS ORDERED: ALBUTEROL SO4 0.083% IH SOL 2.5 MG/3 ML VIAL.NEB. NEB PRN (06:15)
[2024-12-29] MEDS: CEFTRIAXONE 1 GM in DEXTROSE 5%-WATER - 50 ML IVPB SCH (09:11)
[2024-12-29] MEDS: amLODIPine BESYLATE 10 MG TABLET (FP) PO SCH (09:11)
[2024-12-29] MEDS: ANASTROZOLE 1 MG TABLET PO SCH (09:11)
[2024-12-29] MEDS ORDERED: LOSARTAN POTASSIUM 50 MG TABLET PO SCH (10:00)
[2024-12-29] MEDS: MAGNESIUM OXIDE 400 MG TABLET (FP) PO ONE (18:03)
[2024-12-29 18:07] LABS: EPI CELLS 4 /uL (0-25.1); HYALINE CASTS 1 /uL (0-3.1); URINE APPEARANCE CLOUDY; URINE BACTERIA >9,000 /uL (0-1359); URINE BILIRUBIN NEGATIVE (NEGATIVE); URINE COLOR YELLOW; URINE GLUCOSE (UA) 1+ (NEGATIVE); URINE KETONE NEGATIVE (NEGATIVE); URINE LEUK ESTERASE 2+ (NEGATIVE); URINE NITRITE NEGATIVE (NEGATIVE); URINE PROTEIN 2+ (NEGATIVE); URINE RBC 52 /uL (0-23.9); URINE UROBILINOGEN 0.2 mg/dL (0.2-1.0); URINE WBC 227 /uL (0-25.8)
[2024-12-30] MEDS: SODIUM CHLORIDE 0.45% 1,000 ML IV SCH (01:02)
[2024-12-31 10:43] LABS: CO2 30.0 mmol/L (21-32); GLUCOSE,RANDOM 178.0 mg/dL (74-106)
[2024-12-31 10:46] LABS: CREATININE 1.7 mg/dL (0.55-1.3); SGOT/AST 20.0 U/L (15-37); SGPT/ALT 9.0 U/L (13-61)
[2024-12-31 10:48] LABS: ALK PHOS 125.0 U/L (45-117); TOT PROT 7.2 g/dl (6.4-8.2)
[2024-12-31 22:17] VITALS: RESP 18
[2025-01-01 16:07] VITALS: BP 123/78; PULSE 94; TEMP 97.7
== END 2025-01-01 15:45 | DRG 690 ==
LOC: JER 11:04 → JERBED 19:08 → J5S 22:40
PROVIDERS: ADMIT Internal Medicine; ATTEND Internal Medicine
DX: N39.0 Urinary tract infection, site not specified (principal); N17.9 Acute kidney failure, unspecified; I50.22 Chronic systolic (congestive) heart failure; F03.911 Unspecified dementia, unspecified severity, with agitation; E03.9 Hypothyroidism, unspecified; I11.0 Hypertensive heart disease with heart failure; J44.9 Chronic obstructive pulmonary disease, unspecified; E11.51 Type 2 diabetes mellitus with diabetic peripheral angiopathy without gangrene; J45.909 Unspecified asthma, uncomplicated; D64.9 Anemia, unspecified; E78.5 Hyperlipidemia, unspecified; R62.7 Adult failure to thrive; E86.0 Dehydration; E87.5 Hyperkalemia
CPT/HCPCS: 36415; 71046-TC-FY; 76775-TC; 80053; 81003; 82962; 83735; 84484; 85027; 87086; 93005; 93010; 99285-25